=== PATIENT | male | born 1930 | race Caucasian/White ===

== ENCOUNTER 2016-09-09 18:26 | Emergency (ER) | payer MEDICARE, BC, OTHER ==
--- NOTE | 2016-09-09 19:40 | ER Document Report ---
ED General - General Chief Complaint: Skin Tear(s) Stated Complaint: SKIN CONCERN Cannot obtain history due to: Dementia Notes: Patient is an 86-year-old male who presents from [facility] after he apparently slipped out of his bed causing one of his many fibromas to rub across the bed sheet. This did cause a small abrasion so EMS was contacted for patient to be brought to the emergency department. Patient at time of arrival denies any concerns and states "I don't know why I'm here". TRAVEL OUTSIDE OF THE [place] IN LAST 30 DAYS: No - Related Data Allergies/Adverse Reactions: No Known Allergies Allergy (Verified 05/13/16 05:44) Past Medical History - General Information source: Patient, Emergency Med Personnel - Social History Smoking Status: Never Smoker Frequency of alcohol use: None Drug Abuse: None Lives with: Assisted Family History: None, Reviewed & Not Pertinent - Past Medical History Cardiac Medical History: Reports: Hx Atrial Fibrillation, Hx Hypercholesterolemia Denies: Hx Heart Attack, Hx Hypertension Pulmonary Medical History: Denies: Hx Asthma, Hx Bronchitis, Hx COPD, Hx Pneumonia Neurological Medical History: Denies: Hx Seizures Endocrine Medical History: Reports: Hx Diabetes Mellitus Type 2 GI Medical History: Reports: Hx Gastroesophageal Reflux Disease Musculoskeltal Medical History: Denies Hx Arthritis Psychiatric Medical History: Reports: Hx Dementia, Hx Depression Past Surgical History: Reports: Hx Appendectomy, Hx Tonsillectomy - Immunizations Hx Diphtheria, Pertussis, Tetanus Vaccination: No - given in ER today Review of Systems - Review of Systems Notes: Constitutional: Negative for fever. Cardiovascular: Negative for chest pain. Respiratory: Negative for shortness of breath. Gastrointestinal: Negative for vomiting Musculoskeletal: Negative for back pain. Skin: Negative for rash. Neurological: Negative for weakness or numbness. 10 point ROS negative except as marked above and in HPI. Physical Exam - Vital signs Vitals: Temp Pulse Resp BP Pulse Ox 97.9 F 71 16 115/62 89 L 09/09/16 22:31 09/09/16 22:31 09/09/16 22:31 09/09/16 22:31 09/09/16 22:31 Interpretation: Normal Notes: PHYSICAL EXAMINATION: GENERAL: Well-appearing, well-nourished and in no acute distress. HEAD: Atraumatic, normocephalic. EYES: sclera anicteric, conjunctiva are normal. ENT: Moist mucous membranes. NECK: Normal range of motion LUNGS: Normal work of breathing HEART: 2+ radial pulses bilaterally EXTREMITIES: no pitting or edema. No cyanosis. NEUROLOGICAL: No focal neurological deficits. Moves all extremities spontaneously and on command. PSYCH: Normal mood, normal affect. 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 No indication for repair. The wound has been cleaned and dressed. Patient will be sent back to the facility which sent him.At this time will discharge with return precautions and follow-up recommendations. Verbal discharge instructions given a the bedside and opportunity for questions given. Medication warnings reviewed. Patient is in agreement with this plan and has verbalized understanding of return precautions and the need for primary care follow-up in the next 24-72 hours. - Vital Signs Vital signs: Temp Pulse Resp BP Pulse Ox 97.9 F 71 16 115/62 89 L 09/09/16 22:31 09/09/16 22:31 09/09/16 22:31 09/09/16 22:31 09/09/16 22:31 Discharge - Discharge Clinical Impression: Fibroma, Superficial abrasion Condition: Good Disposition: HOME, SELF-CARE Additional Instructions: Please keep the area clean and dry. Apply sterile dressing. Monitor for any signs of infection including spreading redness, pus from the wound, constitutional symptoms including fever, vomiting, or decreased energy or appetite. Referrals: JÚNIOR CARRENO MD [Primary Care Provider] - Follow up as needed
[2016-09-09 22:33] VITALS: BP 115/62
== END 2016-09-09 23:25 | disposition home or self-care (01) ==
LOC: ER 18:26
DX: S20.411A Abrasion of right back wall of thorax, initial encounter (principal); W22.8XXA Striking against or struck by other objects, initial encounter; D23.5 Other benign neoplasm of skin of trunk; E11.9 Type 2 diabetes mellitus without complications
CPT/HCPCS: 99284

== ENCOUNTER 2016-09-16 11:53 | Emergency (ER) | payer MEDICARE, BC ==
[2016-09-16] MEDS ORDERED: ASPIRIN 81 MG TABLET, CHEWABLE PO ONE (11:56)
[2016-09-16 12:26] LABS: HEMATOCRIT 34.4 % (37.9-51.0); HEMOGLOBIN 10.9 g/dL (13.5-17.0); HGB HCT DIFFERENCE -1.7; MEAN CORPUSCULAR HEMOGLOBIN 22.9 pg (27.0-33.4); MEAN CORPUSCULAR HGB CONC 31.8 g/dL (32.0-36.0); MEAN CORPUSCULAR VOLUME 72 fl (80-97); RED BLOOD COUNT 4.78 10^6/uL (4.35-5.55); RED CELL DISTRIBUTION WIDTH 18.9 % (11.5-14.0); WHITE BLOOD COUNT 11.2 10^3/uL (4.0-10.5)
[2016-09-16 12:55] LABS: ALANINE AMINOTRANSFERASE 34 U/L (21-72); ALBUMIN 2.4 g/dL (3.5-5.0); ALKALINE PHOSPHATASE 75 U/L (38-126); ANION GAP 12 (5-19); ASPARTATE AMINO TRANSFERASE 32 U/L (17-59); BILIRUBIN,TOTAL 0.3 mg/dL (0.2-1.3); BLOOD UREA NITROGEN 21 mg/dL (7-20); CALCIUM 8.7 mg/dL (8.4-10.2); CARBON DIOXIDE 26 mmol/L (22-30); CHLORIDE 102 mmol/L (98-107); CREATININE RESULT 0.66 mg/dL (0.52-1.25); GLUCOSE 194 mg/dL (75-110); POTASSIUM 3.4 mmol/L (3.6-5.0); SODIUM 139.8 mmol/L (137-145); TOTAL PROTEIN 5.7 g/dL (6.3-8.2)
[2016-09-16 12:56] LABS: CREATINE KINASE < 20 U/L (55-170)
[2016-09-16 12:58] LABS: BAND NEUTROPHILS % (MANUAL) 1 % (3-5); BASOPHILS % (MANUAL) 1 % (0-2); EOSINOPHILS % (MANUAL) 1 % (0-6); LYMPHOCYTES % (MANUAL) 5 % (13-45); TOTAL CELLS COUNTED 100
[2016-09-16 12:59] LABS: ANISOCYTOSIS 2+; HYPOCHROMASIA SLIGHT; MICROCYTOSIS 1+; OVALOCYTES 1+; POIKILOCYTOSIS 1+; POLYCHROMASIA SLIGHT; TOXIC GRANULATION SLIGHT
[2016-09-16 13:07] LABS: CREATINE KINASE MB 0.54 ng/mL (<4.55); TROPONIN I < 0.012 ng/mL
--- NOTE | 2016-09-16 13:13 | ER Document Report ---
ED General - General Chief Complaint: Cough Stated Complaint: COUGH Mode of Arrival: Medic Information source: Patient Notes: This is an 86-year-old gentleman with a history of neurofibromatosis who lives at [facility] WHO IS BROUGHT IN BY EMS FOR RIGHT-SIDED PLEURITIC CHEST PAIN. The patient tells me that this pain has been going on for "a while" but that he really wants to know what's going on. He denies current chest pain. He states he does not have pain at rest. He does have pain on the right side with deep inspiration and with cough. He denies any palpitations or dizziness. He does not feel short of breath. He has had no diaphoresis. TRAVEL OUTSIDE OF THE [place] IN LAST 30 DAYS: No - Related Data Allergies/Adverse Reactions: No Known Allergies Allergy (Verified 05/13/16 05:44) Past Medical History - General Information source: Patient Cannot obtain history due to: Other - mild dementia - Social History Smoking Status: Unknown if Ever Smoked Family History: None, Reviewed & Not Pertinent - Past Medical History Cardiac Medical History: Reports: Hx Atrial Fibrillation, Hx Hypercholesterolemia Denies: Hx Heart Attack, Hx Hypertension Pulmonary Medical History: Denies: Hx Asthma, Hx Bronchitis, Hx COPD, Hx Pneumonia Neurological Medical History: Denies: Hx Seizures Endocrine Medical History: Reports: Hx Diabetes Mellitus Type 2 GI Medical History: Reports: Hx Gastroesophageal Reflux Disease Musculoskeltal Medical History: Denies Hx Arthritis Psychiatric Medical History: Reports: Hx Dementia, Hx Depression Past Surgical History: Reports: Hx Appendectomy, Hx Tonsillectomy - Immunizations Hx Diphtheria, Pertussis, Tetanus Vaccination: No - given in ER today Review of Systems - Review of Systems Notes: REVIEW OF SYSTEMS: CONSTITUTIONAL : Denies fever, chills, or sweats. Denies recent illness. EENT: Denies eye, ear, throat, or mouth pain or symptoms. CARDIOVASCULAR: As per history of present illness RESPIRATORY: Denies shortness of breath, difficulty breathing, or wheezing. Cough and pleuritic pain as per history of present illness GASTROINTESTINAL: Denies abdominal pain. Denies nausea, vomiting, or diarrhea. Denies constipation GENITOURINARY: Denies difficulty urinating, painful urination, burning, frequency, or blood in urine. MUSCULOSKELETAL: Denies neck or back pain or joint pain or swelling. SKIN: Denies rash. Multiple fibromas are chronic HEMATOLOGIC : Denies easy bruising or bleeding. LYMPHATIC: Denies swollen, enlarged glands. NEUROLOGICAL: Denies headache. PSYCHIATRIC: Denies anxiety or stress or depression. ALL OTHER SYSTEMS REVIEWED AND NEGATIVE. Physical Exam - Vital signs Vitals: Resp Pulse Ox 22 H 92 09/16/16 12:16 09/16/16 12:16 - Notes Notes: PHYSICAL EXAMINATION: GENERAL: Well-appearing, interactive and conversant elderly male with innumerable soft tissue fibromas over his body. HEAD: Atraumatic, normocephalic. EYES: Pupils equal round and reactive to light, extraocular movements intact, sclera anicteric, conjunctiva are normal. ENT: nares patent, oropharynx clear without exudates. Moist mucous membranes. NECK: Normal range of motion, supple without lymphadenopathy LUNGS: Breath sounds clear to auscultation bilaterally and equal. No wheezes rales or rhonchi. Occasional deep cough during exam chest wall: No TTP HEART: Regular rate and rhythm without murmurs ABDOMEN: Soft, nontender, normoactive bowel sounds. No guarding, no rebound. No masses appreciated. EXTREMITIES: Normal range of motion, no edema NEUROLOGICAL: No gross focal motor or sensory deficits. Pt alert to person and place and has baseline mild dementia PSYCH: Normal mood, normal affect. SKIN: inumerable fibromas Course - Re-evaluation Re-evalutation: 09/16/16 16:13 Patient is resting comfortably in the room. He is very pleasant and conversant has no shortness of breath. We reviewed the CT results he will be discharged home today. Secondary to his deep cough, leukocytosis, and recent history of right sided pneumonia in May 2016, I will treat him with a course of doxycycline. He will follow up with his primary care physician. He is comfortable with this plan and return precautions are discussed. 09/16/16 22:34 - Vital Signs Vital signs: Temp Pulse Resp BP Pulse Ox 98.9 F 19 121/70 92 09/16/16 13:00 09/16/16 16:33 09/16/16 16:33 09/16/16 16:33 - Laboratory Result Diagrams: 09/16/16 12:05 09/16/16 12:20 Laboratory results interpreted by me: 09/16/16 09/16/16 12:05 12:20 WBC 11.2 H Hgb 10.9 L Hct 34.4 L MCV 72 L MCH 22.9 L MCHC 31.8 L RDW 18.9 H Seg Neuts % (Manual) 88 H Band Neutrophils % 1 L Lymphocytes % (Manual) 5 L Monocytes % (Manual) 2 L Metamyelocytes % 2 H Abs Neuts (Manual) 10.2 H Potassium 3.4 L BUN 21 H Glucose 194 H Creatine Kinase < 20 L Total Protein 5.7 L Albumin 2.4 L - Diagnostic Test Radiology reviewed: Reports reviewed - CTA of the chest and abdomen demonstrates no pulmonary embolism and no acute abnormality. He does have patchy bilateral airspace disease which is improved from May. - EKG Interpretation by Me Additional EKG results interpreted by me: 09/16/16 16:15 EKG done at 1212 today demonstrates sinus rhythm with a rate of 80. He does have PVCs. I see some nonspecific T-wave changes but no ST elevation or depression or obvious signs of acute ischemia. Discharge - Discharge Clinical Impression: Pleuritic chest pain, Cough in adult patient Condition: Stable Disposition: HOME, SELF-CARE Additional Instructions: CHEST WALL PAIN: Your chest pain may be coming from the chest wall. This is often caused by straining the muscles or joints in the chest during physical activity, direct trauma, coughing, or vigorous vomiting. Persons with arthritis are especially prone to this type of pain, due to inflammation of the cartilage joints near the breast bone. Occasionally, no cause can be found. Rest from strenuous physical activity. This kind of chest pain is usually made worse by movement of the chest. Depending on the symptoms, we may prescribe medicine for pain, muscle relaxation, and antiinflammatory effects. If the pain is new, and seems to be due to muscle strain, cold packs can help. Otherwise, apply gentle warmth to the painful area for 15 minutes every hour or two. You should call contact the doctor immediately if things change. Further evaluation is needed if you develop a fever or cough, if the nature of the pain changes, or if you become short of breath. Pleurisy Your chest pain has been diagnosed as pleuritis (pleurisy). This is an inflammation of the surface of the lung tissue. It can be caused by a virus or , occasionally, old scar tissue. It is painful but, for the most part, not a serious problem. This pain is usually made worse by deep breathing, coughing, or sudden movements of the upper body or arms. The treatment is relief of symptoms. It includes rest, antiinflammatory medication, and pain medicine. Resolution of the pain is usually rapid once antiinflammatory medication is started. Warning signs of a more serious problem include: a fever, shortness of breath, pain that radiates to your jaw, shoulders or arms, or coughing up bloody sputum. If any of these symptoms occur, call the physician at once. FOLLOW-UP CARE: If you have been referred to a physician for follow-up care, call the physician s office for an appointment as you were instructed or within the next two days. If you experience worsening or a significant change in your symptoms, notify the physician immediately or return to the Emergency Department at any time for re-evaluation. Prescriptions: Doxycycline Hyclate 100 mg PO BID #14 capsule
[2016-09-16] MEDS ORDERED: NORMAL SALINE 1000 ML 1,000 ML IV ONE (13:14)
--- NOTE | 2016-09-16 13:21 | EKG REPORT ---
SEVERITY:- ABNORMAL ECG - SINUS RHYTHM MULTIPLE PREMATURE COMPLEXES, SUPRAVEN ABERRENCY BORDERLINE T ABNORMALITIES, INFERIOR LEADS : Confirmed by: Ronnie Hardwick MD 16-Sep-2016 13:20:53
[2016-09-16 16:42] VITALS: BP 121/70
== END 2016-09-16 16:54 | disposition home or self-care (01) ==
LOC: ER 11:53
DX: R07.89 Other chest pain (principal); R05 Cough
CPT/HCPCS: 93005; 99284; 96360; 36415; 82553; 82550; 85025; 80053; 84484; 71010; 71275; 93010; J7030

== ENCOUNTER 2016-09-24 14:19 | Inpatient (IN) | payer MEDICARE, BC ==
--- NOTE | 2016-09-24 14:46 | ER Document Report ---
[id number] Information source: Emergency Med Personnel, [facility] Records TRAVEL OUTSIDE OF THE [place] IN LAST 30 DAYS: No - HPI Patient complains to provider of: Possible Fall Occurred: Just prior to arrival Where: Alf - [facility] Associated symptoms: Other - see above <LAURA CARRENO - Last Filed: 10/06/16 14:59> - General Stated Complaint: FOLLOW UP AFTER FALL Notes: 86 year old male with history of neurofibromatosis, atrial fibrillation, seizures, and dementia presents to the ED via EMS from [facility] after being found prone on the ground with his sweatshirt over his head. According to EMS the patient was conscious but incoherent, but do not know his baseline level of consciousness. Patient states that he does not remember falling. Patient was incontinent on examination. Patient was last seen in the ED on 09/16/2016 secondary to a cough and was prescribed doxycycline for 1 week. Patient's primary care provider is Dr. Carreno. A comprehensive HPI was unobtainable secondary to the patient's status. (LAURA CARRENO) - Related data Allergies/Adverse Reactions: No Known Allergies Allergy (Verified 05/13/16 05:44) Home Medications: Current Home Medications Acetaminophen [Tylenol Extra Strength 500 mg Tablet] 1 tab PO Q6HP PRN 09/25/16 [History] Aspirin [Adult Low Dose Aspirin EC] 81 mg PO DAILY 09/25/16 [History] Cetirizine HCl [Zyrtec 10 mg Tablet] 1 tab PO QPM 09/25/16 [History] Cholecalciferol (Vitamin D3) [Vitamin D3 1000 Unit Tablet] 1,000 unit PO DAILY 09/25/16 [History] Diltiazem HCl [Cardizem Cd 120 mg Capsule] 1 cap.sr PO DAILY 09/25/16 [History] Fluticasone/Salmeterol [Advair 250-50 Diskus 28 dose] 1 inh IH BID 09/25/16 [ History] Guaifenesin [Robitussin Syrup 200 mg/10 ml Ud Cup] 200 mg PO Q4HP PRN 09/25/16 [ History] Ipratropium/Albuterol Sulfate [Duoneb 3 ml Ampul] 3 ml NEB RTQ4HP PRN 09/25/16 [ History] Loperamide HCl [Loperamide] 2 mg PO PRN PRN 09/25/16 [History] Magnesium Hydroxide [Milk of Magnesia 30 ml Udcup] 30 ml PO DAILYP PRN 09/25/16 [History] Simvastatin [Zocor 20 mg Tablet] 20 mg PO QHS 09/25/16 [History] Tamsulosin HCl [Flomax 0.4 mg Cap.sr] 0.4 mg PO QAM 09/25/16 [History] Tiotropium Newberg [Spiriva Respimat] 4 gm IH DAILY 09/25/16 [History] Past Medical History - General Information source: Emergency Med Personnel, [facility] Records - Social History Smoking Status: Unknown if Ever Smoked Family History: Reviewed & Not Pertinent - Past Medical History Cardiac Medical History: Reports: Hx Atrial Fibrillation, Hx Heart Attack, Hx Hypercholesterolemia Neurological Medical History: Denies: Hx Seizures Endocrine Medical History: Reports: Hx Diabetes Mellitus Type 2 GI Medical History: Reports: Hx Gastroesophageal Reflux Disease Musculoskeltal Medical History: Denies Hx Arthritis Psychiatric Medical History: Reports: Hx Dementia, Hx Depression Past Surgical History: Reports: Hx Appendectomy, Hx Tonsillectomy - Immunizations Hx Diphtheria, Pertussis, Tetanus Vaccination: No - given in ER today <LAURA CARRENO - Last Filed: 10/06/16 14:59> Review of Systems - Review of Systems -: Yes ROS unobtainable due to patient's medical condition <LAURA CARRENO - Last Filed: 10/06/16 14:59> Physical Exam - General General appearance: Alert, Other - Strong urine odor secondary to urinary incontinence. In distress: None - HEENT Head: Normocephalic, Atraumatic Eyes: Normal Extraocular movements intact: Yes Pupils: PERRL - Respiratory Respiratory status: No respiratory distress Breath sounds: Rhonchi, Other - congestive cough - Cardiovascular Rhythm: Regular Heart sounds: Normal auscultation - Abdominal Inspection: Normal - Back Back: Normal - Extremities General upper extremity: Normal inspection, Normal ROM. No: Edema General lower extremity: Normal inspection, Normal ROM. No: Edema - Neurological Neuro grossly intact: Yes - Skin Skin Temperature: Warm Skin Moisture: Dry Skin Color: Normal Skin irregularity: other - Generalized neurofibromas present. Bleeding neurofibroma on right flank. <LAURA CARRENO - Last Filed: 10/06/16 14:59> - Vital signs Vitals: Temp Resp Pulse Ox 100.2 F 31 H 88 L 09/24/16 15:00 09/24/16 15:00 09/24/16 15:00 (AMY ARIAS) Course - Laboratory Result Diagrams: 09/24/16 15:05 09/24/16 15:05 - Diagnostic Test Radiology reviewed: Image reviewed, Reports reviewed - Chest x-ray shows retrocardiac infiltrate - EKG Interpretation by Me EKG shows normal: Sinus rhythm, Intervals, QRS Complexes, ST-T Waves. abnormal : Eagle Rate: Tachycardia - 114 Rhythm: PVC's Eagle/QRS: Left axis deviation When compared to previous EKG there are: No significant change - Consults Dr. Carreno Time consulted: 16:40 Consulted provider: will come to ER <AMY ARIAS - Last Filed: 09/24/16 16:44> - Laboratory Result Diagrams: 10/06/16 04:15 10/06/16 04:15 <LAURA CARRENO - Last Filed: 10/06/16 14:59> - Vital Signs Vital signs: Temp Pulse Resp BP Pulse Ox 98.3 F 76 16 110/58 L 96 10/06/16 12:05 10/06/16 13:25 10/06/16 13:25 10/06/16 12:05 10/06/16 13:25 (AMY ARIAS) - Laboratory Laboratory results interpreted by wv: 09/24/16 09/24/16 09/24/16 15:02 15:05 15:05 WBC 30.8 H* Hgb 10.8 L Hct 35.1 L MCV 72 L MCH 22.2 L MCHC 30.7 L RDW 19.0 H Plt Count 460 H Seg Neuts % (Manual) 93 H Lymphocytes % (Manual) 1 L Monocytes % (Manual) 0 L Abs Neuts (Manual) 29.9 H Abs Monocytes (Manual) 0.0 L Total Protein 5.7 L Albumin 2.8 L Urine Blood LARGE H Urine Nitrite POSITIVE H Ur Leukocyte Esterase LARGE H (AMY ARIAS) Discharge - Discharge Admitting Provider: [facility] Unit Admitted: IMCU <AMY ARIAS - Last Filed: 09/24/16 16:44> <LAURA CARRENO - Last Filed: 10/06/16 14:59> - Discharge Clinical Impression: Hypoxia Urinary tract infection Qualifiers: Urinary tract infection type: site unspecified Hematuria presence: with hematuria Qualified Code(s): N39.0 - Urinary tract infection, site not specified Pneumonia Qualifiers: Pneumonia type: due to unspecified organism Laterality: left Lung location: unspecified part of lung Qualified Code(s): J18.9 - Pneumonia, unspecified organism Leukocytosis Qualifiers: Leukocytosis type: bandemia Qualified Code(s): D72.825 - Bandemia Scribe Attestation: 09/24/16 16:43 I personally performed the services described in the documentation, reviewed and edited the documentation which was dictated to the scribe in my presence, and it accurately records my words and actions. (AMY ARIAS) Scribe Documentation - Scribe Written by Scribe:: You Kinney, 09/24/2016 1450 acting as scribe for :: Ton <LAURA CARRENO - Last Filed: 10/06/16 14:59>
[2016-09-24 15:21] LABS: APPEARANCE,URINE CLOUDY; BILIRUBIN,URINE NEGATIVE (NEGATIVE); GLUCOSE, URINE NEGATIVE (NEGATIVE); KETONES,URINE NEGATIVE (NEGATIVE); LEUKOCYTE ESTERASE,URINE LARGE (NEGATIVE); NITRITE,URINE POSITIVE (NEGATIVE); PROTEIN,URINE NEGATIVE (NEGATIVE); UROBILINOGEN,URINE NEGATIVE mg/dL (<2.0)
[2016-09-24 15:26] LABS: HEMATOCRIT 35.1 % (37.9-51.0); HEMOGLOBIN 10.8 g/dL (13.5-17.0); HGB HCT DIFFERENCE -2.7; MEAN CORPUSCULAR HEMOGLOBIN 22.2 pg (27.0-33.4); MEAN CORPUSCULAR HGB CONC 30.7 g/dL (32.0-36.0); MEAN CORPUSCULAR VOLUME 72 fl (80-97); RED BLOOD COUNT 4.86 10^6/uL (4.35-5.55)
[2016-09-24 15:27] LABS: VENOUS BLOOD BASE EXCESS 0.7 mmol/L; VENOUS BLOOD HCO3 25.9 mmol/L (20-32); VENOUS BLOOD PCO2 43.3 mmHg (35-63); VENOUS BLOOD PH 7.39 (7.30-7.42)
[2016-09-24 15:37] LABS: ALANINE AMINOTRANSFERASE 37 U/L (21-72); ALBUMIN 2.8 g/dL (3.5-5.0); ALKALINE PHOSPHATASE 85 U/L (38-126); ANION GAP 9 (5-19); ASPARTATE AMINO TRANSFERASE 29 U/L (17-59); BILIRUBIN,TOTAL 0.6 mg/dL (0.2-1.3); BLOOD UREA NITROGEN 19 mg/dL (7-20); CALCIUM 8.9 mg/dL (8.4-10.2); CARBON DIOXIDE 28 mmol/L (22-30); CHLORIDE 104 mmol/L (98-107); CREATININE RESULT 0.68 mg/dL (0.52-1.25); GLUCOSE 107 mg/dL (75-110); POTASSIUM 3.9 mmol/L (3.6-5.0); SODIUM 140.5 mmol/L (137-145); TOTAL PROTEIN 5.7 g/dL (6.3-8.2)
[2016-09-24 15:46] LABS: WHITE BLOOD COUNT 30.8 10^3/uL (4.0-10.5)
[2016-09-24 15:54] LABS: BAND NEUTROPHILS % (MANUAL) 4 % (3-5); BASOPHILS % (MANUAL) 0 % (0-2); EOSINOPHILS % (MANUAL) 1 % (0-6); LYMPHOCYTES % (MANUAL) 1 % (13-45); TOTAL CELLS COUNTED 100
[2016-09-24 15:55] LABS: TOXIC GRANULATION 1+
[2016-09-24 15:56] LABS: ANISOCYTOSIS 2+; MICROCYTOSIS 1+
[2016-09-24 15:58] LABS: OVALOCYTES SLIGHT; POLYCHROMASIA SLIGHT
[2016-09-24 15:59] LABS: HYPOCHROMASIA 1+
[2016-09-24] MEDS ORDERED: LEVOFLOXACIN 750 MG/D5W RTU 150 ML IV ONE (16:10)
[2016-09-24] MEDS ORDERED: CEFTRIAXONE 1 GM/D5W RTU 50 ML IV ONE (16:11)
[2016-09-24] MEDS ORDERED: CEFEPIME 1 GM/D5W RTU 50 ML IV ONE (16:41)
[2016-09-24] MEDS ORDERED: NORMAL SALINE 1000 ML 1,000 ML IV ONE ×2 (17:02→19:00)
[2016-09-24] MEDS ORDERED: NORMAL SALINE 1000 ML 1,000 ML IV PRN (17:15)
[2016-09-24] MEDS ORDERED: ACETAMINOPHEN 325 MG TABLET PO PRN (17:15)
[2016-09-24] MEDS ORDERED: ONDANSETRON HCL INJ/PF 4 MG/2 ML SDV IV PRN (17:15)
[2016-09-24] MEDS ORDERED: ENOXAPARIN SODIUM INJ 40 MG/0.4 ML DISP.SYRIN SUBCUT ONE (18:00)
--- NOTE | 2016-09-24 18:13 | PDOC H&P ---
History of Present Illness Admission Date/PCP: 09/24/16 17:20 JÚNIOR CARRENO MD History of Present Illness: BENNY POWELL is a 86 year old male This is a 86-year-old male with a significant history of neurofibromatosis chronic COPD and chronic smoker chronic A. fib and congestive heart failure and coronary disease came to the [facility] with the patient's found in the prone position and altered mental status in the ER patient's white count was 30, 000 and patient's have a urinary tract infection and pneumonia respiratory distress patient's in the IMCU for further evaluation and treatment. See the patient's patient's denied any chest pain denied any shortness of the breath since still complaining some cough and congestions since last several days and no fever. Expressed to be a DO NOT RESUSCITATE DO NOT INTUBATE Past Medical History Cardiac Medical History: Reports: Atrial Fibrillation, Myocardial Infarction, Hyperlipidema Denies: Hypertension Pulmonary Medical History: Denies: Asthma, Bronchitis, Chronic Obstructive Pulmonary Disease (COPD), Pneumonia Neurological Medical History: Denies: Seizures Endocrine Medical History: Reports: Diabetes Mellitus Type 2 GI Medical History: Reports: Gastroesophageal Reflux Disease Musculoskeltal Medical History: Denies: Arthritis Psychiatric Medical History: Reports: Dementia, Depression Hematology: Denies: Anemia Past Surgical History Past Surgical History: Reports: Appendectomy, Tonsillectomy Social History Smoking Status: Current Every Day Smoker Frequency of Alcohol Use: None Hx Recreational Drug Use: No Hx Prescription Drug Abuse: No Family History Family History: Reviewed & Not Pertinent Parental Family History Reviewed: Yes Children Family History Reviewed: Yes Sibling(s) Family History Reviewed.: Yes Medication/Allergy Allergies/Adverse Reactions: No Known Allergies Allergy (Verified 05/13/16 05:44) Review of Systems Constitutional: PRESENT: fatigue, weakness Cardiovascular: PRESENT: dyspnea on exertion Respiratory: PRESENT: cough, dyspnea, sputum Gastrointestinal: ABSENT: as per HPI, bloating, coffee ground emesis, constipation, diarrhea, dysphagia, heartburn, hematemesis, hematochezia, melena , nausea, vomiting, other Genitourinary: PRESENT: dysuria Musculoskeletal: PRESENT: back pain Neurological: PRESENT: confusion Physical Exam Vital Signs: Temp Pulse Resp BP Pulse Ox 98.3 F 24 H 98/57 L 96 09/24/16 18:01 09/24/16 17:31 09/24/16 17:31 02/15/17 17:31 General appearance: PRESENT: mild distress Eye exam: PRESENT: conjunctiva pale, PERRLA Mouth exam: PRESENT: neck supple Neck exam: ABSENT: full ROM Respiratory exam: PRESENT: decreased breath sounds, wheezes Cardiovascular exam: PRESENT: +S1, +S2 GI/Abdominal exam: PRESENT: normal bowel sounds, soft Extremities exam: ABSENT: pedal edema Neurological exam: PRESENT: alert, altered, awake Psychiatric exam: PRESENT: anxious Skin exam: PRESENT: dry Results Impressions: Chest X-Ray 09/24/16 14:21 IMPRESSION: QUESTIONABLE RETROCARDIAC INFILTRATE, DIFFICULT TO VISUALIZE. Assessment & Plan - Diagnosis (1) Septicemia Is this a current diagnosis for this admission?: YesPlan: Most likely from the pneumonia and urinary tract infections start the patient on IV broad-spectrum antibiotic get the all the blood culture urine cultures sputum cultures and IV fluid and continues to monitor the patient's (2) Pneumonia Qualifiers: Pneumonia type: due to unspecified organism Laterality: left Lung location: unspecified part of lung Qualified Code(s): J18.9 - Pneumonia, unspecified organism Is this a current diagnosis for this admission?: YesPlan: Start specimen IV antibiotic (3) Urinary tract infection Qualifiers: Urinary tract infection type: site unspecified Hematuria presence: with hematuria Qualified Code(s): N39.0 - Urinary tract infection, site not specified Is this a current diagnosis for this admission?: YesPlan: The urine cultures (4) Paroxysmal atrial fibrillation Is this a current diagnosis for this admission?: YesPlan: Patient is not a candidate for an anticoagulations due to the frequent fall (5) Respiratory failure Qualifiers: Chronicity: acute on chronic Respiratory failure complication: hypoxia and hypercapnia Qualified Code(s): J96.21 - Acute and chronic respiratory failure with hypoxia Is this a current diagnosis for this admission?: YesPlan: Continuous oxygen therapy nebulizer treatments and IV antibiotic (6) Coronary artery disease Is this a current diagnosis for this admission?: YesPlan: Stable (7) Neurofibromatosis Is this a current diagnosis for this admission?: YesPlan: Chronic conditions (8) Altered mental status Qualifiers: Altered mental status type: unspecified Qualified Code(s): R41.82 - Altered mental status, unspecified Is this a current diagnosis for this admission?: YesPlan: Most likely from the sepsis will get the CT of the head with the history of fall - Time Time Spent: 50 to 70 Minutes Medications reviewed and adjusted accordingly: Yes Anticipated discharge: SNF Within: Other - Inpatient Certification Medical Necessity: Significant Comorbidiites Make Outpatient Treatment Too Risky , Need Close Monitoring Due to Risk of Patient Decompensation, Need for IV Antibiotics Post Hospital Care: D/C Steak Tenderizer Machine Documentation - Plan Summary Plan Summary: Admitted the patient and IMCU start the patient on IV antibiotic and the respiratory treatment CT of the head and the chest and continues to monitor the patient's patient overall poor prognosis
[2016-09-24] MEDS: DOCUSATE SODIUM 100 MG CAPSULE PO SCH (18:15)
[2016-09-24 19:49] LABS: CREATINE KINASE MB 1.29 ng/mL (<4.55)
[2016-09-24 19:56] LABS: TROPONIN I 0.078 ng/mL
[2016-09-24] MEDS: IPRATROPIUM/ALBUTEROL 0.5-2.5 MG/3 ML AMPUL NEB SCH (20:01)
--- NOTE | 2016-09-24 21:37 | EKG REPORT ---
SEVERITY:- ABNORMAL ECG - SINUS TACHYCARDIA LEFT AXIS DEVIATION : Confirmed by: Camron Hoyos 24-Sep-2016 21:36:27
[2016-09-25 01:32] LABS: CREATINE KINASE MB 1.53 ng/mL (<4.55); TROPONIN I 0.04 ng/mL
[2016-09-25] MEDS: CEFEPIME 1 GM/D5W RTU 1 GM/50 ML RTUPB IV SCH ×2 (05:01→17:06)
[2016-09-25 07:11] LABS: HEMATOCRIT 31.6 % (37.9-51.0); HEMOGLOBIN 9.8 g/dL (13.5-17.0); HGB HCT DIFFERENCE -2.2; MEAN CORPUSCULAR HEMOGLOBIN 22.4 pg (27.0-33.4); MEAN CORPUSCULAR HGB CONC 31.1 g/dL (32.0-36.0); MEAN CORPUSCULAR VOLUME 72 fl (80-97); RED BLOOD COUNT 4.39 10^6/uL (4.35-5.55); RED CELL DISTRIBUTION WIDTH 18.5 % (11.5-14.0)
[2016-09-25 07:18] LABS: ANION GAP 8 (5-19); BLOOD UREA NITROGEN 19 mg/dL (7-20); CALCIUM 8.2 mg/dL (8.4-10.2); CARBON DIOXIDE 25 mmol/L (22-30); CHLORIDE 109 mmol/L (98-107); CREATINE KINASE 60 U/L (55-170); GLUCOSE 82 mg/dL (75-110); POTASSIUM 3.9 mmol/L (3.6-5.0); SODIUM 141.9 mmol/L (137-145)
[2016-09-25 07:27] LABS: BAND NEUTROPHILS % (MANUAL) 1 % (3-5); BASOPHILS % (MANUAL) 0 % (0-2); CREATINE KINASE MB 1.71 ng/mL (<4.55); EOSINOPHILS % (MANUAL) 0 % (0-6); LYMPHOCYTES % (MANUAL) 4 % (13-45); TOTAL CELLS COUNTED 100
[2016-09-25 07:28] LABS: ANISOCYTOSIS 1+
[2016-09-25 07:29] LABS: HYPOCHROMASIA SLIGHT; MICROCYTOSIS 1+; OVALOCYTES SLIGHT; POIKILOCYTOSIS SLIGHT
[2016-09-25 07:31] LABS: TROPONIN I 0.019 ng/mL
[2016-09-25 07:42] LABS: WHITE BLOOD COUNT 34.9 10^3/uL (4.0-10.5)
[2016-09-25] MEDS: ENOXAPARIN SODIUM INJ 40 MG/0.4 ML DISP.SYRIN SUBCUT SCH (07:58)
[2016-09-25] MEDS ORDERED: VANCOMYCIN HCL 0 MG in DEXTROSE 5%-WATER 250 ML IV NR (08:00)
[2016-09-25 08:41] LABS: ARTERIAL BLOOD BASE EXCESS 1.7 mmol/L; ARTERIAL BLOOD O2 SATURATION 94.7 % (94-98)
[2016-09-25] MEDS: IPRATROPIUM/ALBUTEROL 0.5-2.5 MG/3 ML AMPUL NEB SCH ×4 (08:42→20:11)
[2016-09-25] MEDS: VANCOMYCIN HCL 750 MG in DEXTROSE 5%-WATER 250 ML IV SCH ×2 (10:10→21:14)
[2016-09-25] MEDS: DOCUSATE SODIUM 100 MG CAPSULE PO SCH (10:12)
[2016-09-25] MEDS ORDERED: ALPRAZOLAM 0.25 MG TABLET PO PRN ×2 (11:12→13:41)
--- NOTE | 2016-09-25 12:26 | PDOC CONSULTATION ---
Consultation Consult Date: 09/25/16 Attending physician:: JÚNIOR CARRENO Consult reason:: resp fail History of Present Illness Admission Date/PCP: 09/24/16 17:15 JÚNIOR CARRENO MD History of Present Illness: BENNY POWELL is a 86 year old male This is a 86-year-old male with a significant history of neurofibromatosis chronic COPD and chronic smoker chronic A. fib and congestive heart failure and coronary disease. the patient's found in the prone position and altered mental status in the ER patient's white count was 30,000 and patient's have a urinary tract infection and pneumonia respiratory distress patient's in the IMCU for further evaluation and treatment. See the patient's complaining some cough and congestions since last several days and no fever. Expressed to be a DO NOT RESUSCITATE DO NOT INTUBATE Past Medical History Cardiac Medical History: Reports: Atrial Fibrillation, Myocardial Infarction, Hyperlipidema Denies: Hypertension Pulmonary Medical History: Denies: Asthma, Bronchitis, Chronic Obstructive Pulmonary Disease (COPD), Pneumonia Neurological Medical History: Denies: Seizures Endocrine Medical History: Reports: Diabetes Mellitus Type 2 GI Medical History: Reports: Gastroesophageal Reflux Disease Musculoskeltal Medical History: Denies: Arthritis Psychiatric Medical History: Reports: Dementia, Depression Hematology: Denies: Anemia Past Surgical History Past Surgical History: Reports: Appendectomy, Tonsillectomy Social History Information Source: [facility] Records Smoking Status: Current Every Day Smoker Passive smoke exposure as: Both Frequency of Alcohol Use: None Hx Recreational Drug Use: No Hx Prescription Drug Abuse: No - Advance Directive Resuscitation Status: Full Code Family History Family History: Reviewed & Not Pertinent Parental Family History Reviewed: No Children Family History Reviewed: No Sibling(s) Family History Reviewed.: No Medication/Allergy Allergies/Adverse Reactions: No Known Allergies Allergy (Verified 05/13/16 05:44) Physical Exam Vital Signs: Temp Pulse Resp BP Pulse Ox 97.7 F 120 H 29 H 108/51 L 93 09/25/16 08:00 09/25/16 10:00 09/25/16 10:00 09/25/16 10:00 09/25/16 10:00 Intake & Output 09/24/16 09/25/16 09/26/16 06:59 06:59 06:59 Intake Total 131 Output Total 270 75 Balance -139 -75 Weight 59.4 kg General appearance: PRESENT: disheveled, thin Head exam: PRESENT: normocephalic Eye exam: PRESENT: conjunctiva pale, EOMI Mouth exam: PRESENT: dry mucosa, neck supple, tongue midline Neck exam: ABSENT: carotid bruit, JVD, lymphadenopathy, thyromegaly Respiratory exam: PRESENT: decreased breath sounds, prolonged expiratory phas, rhonchi, symmetrical, unlabored Cardiovascular exam: PRESENT: irregular rhythm Pulses: PRESENT: normal radial pulses GI/Abdominal exam: PRESENT: normal bowel sounds, soft. ABSENT: distended, guarding, mass, organolmegaly, rebound, tenderness Rectal exam: PRESENT: deferred Musculoskeletal exam: PRESENT: normal inspection Neurological exam: PRESENT: awake Psychiatric exam: PRESENT: normal mood Skin exam: PRESENT: dry, warm, other - diffuse subcutaneous nodules c/w neurofirbromatosis Results Laboratory Results: 09/25/16 06:59 09/25/16 06:59 09/25/16 09/25/16 09/25/16 06:59 06:59 08:32 WBC 34.9 H* RBC 4.39 Hgb 9.8 L Hct 31.6 L MCV 72 L MCH 22.4 L MCHC 31.1 L RDW 18.5 H Plt Count 403 Seg Neutrophils % Not Reportable Lymphocytes % Not Reportable Monocytes % Not Reportable Eosinophils % Not Reportable Basophils % Not Reportable Absolute Neutrophils Not Reportable Absolute Lymphocytes Not Reportable Absolute Monocytes Not Reportable Absolute Eosinophils Not Reportable Absolute Basophils Not Reportable Carbonic Acid 1.00 L HCO3/H2CO3 Ratio 24:1 ABG pH 7.49 H ABG pCO2 33.2 L ABG pO2 66.3 L ABG HCO3 24.8 ABG O2 Saturation 94.7 ABG Base Excess 1.7 FiO2 6L Sodium 141.9 Potassium 3.9 Chloride 109 H Carbon Dioxide 25 Anion Gap 8 BUN 19 Creatinine 0.60 Est GFR ( Amer) > 60 Est GFR (Non-Af Amer) > 60 Glucose 82 Calcium 8.2 L 09/24/16 09/24/16 09/25/16 19:10 19:10 00:35 Creatine Kinase 57 63 CK-MB (CK-2) 1.29 Troponin I 0.078 NT-Pro-B Natriuret Pep 576 H 09/25/16 09/25/16 09/25/16 00:35 06:59 06:59 Creatine Kinase 60 CK-MB (CK-2) 1.53 1.71 Troponin I 0.040 0.019 NT-Pro-B Natriuret Pep Impressions: Chest CT 09/24/16 00:00 IMPRESSION: Significantly increased consolidation involving both lower lobes with new areas of patchy airspace disease present in the right middle and left upper lobes. Small bilateral pleural effusions are present. Head CT 09/24/16 00:00 IMPRESSION: Acute maxillary, ethmoid, and sphenoid sinusitis. CHRONIC CHANGES OF ATROPHY AND MICROVASCULAR ISCHEMIA. No acute intracranial findings. Chest X-Ray 09/24/16 14:21 IMPRESSION: QUESTIONABLE RETROCARDIAC INFILTRATE, DIFFICULT TO VISUALIZE. Assessment & Plan - Diagnosis (1) Leukocytosis Qualifiers: Leukocytosis type: bandemia Qualified Code(s): D72.825 - Bandemia Is this a current diagnosis for this admission?: YesPlan: WBC 32k w/bands (2) Neurofibromatosis Is this a current diagnosis for this admission?: YesPlan: unchanged (3) Septicemia Is this a current diagnosis for this admission?: Yes (4) Urinary tract infection Qualifiers: Urinary tract infection type: site unspecified Hematuria presence: with hematuria Qualified Code(s): N39.0 - Urinary tract infection, site not specified Is this a current diagnosis for this admission?: YesPlan: gnr in urine (5) Pneumonia Qualifiers: Pneumonia type: due to unspecified organism Laterality: left Lung location: unspecified part of lung Qualified Code(s): J18.9 - Pneumonia, unspecified organism Is this a current diagnosis for this admission?: YesPlan: cxr left retrocardiac density chest ct bibasilar air space dx with patchy involvement RUL:RML (6) Hypoxia Is this a current diagnosis for this admission?: YesPlan: good SAO2 94%;rr=22 on bipap (7) COPD with acute exacerbation Is this a current diagnosis for this admission?: YesPlan: consider holding advair and spiriva:continue duoneb bronchodialator tx - Time Critical Time spent with patient: 35 or more minutes - 55 min
[2016-09-25] MEDS ORDERED: CETIRIZINE 10 MG TABLET PO ONE (12:45)
[2016-09-25] MEDS ORDERED: FAMOTIDINE 20 MG TABLET PO ONE (12:45)
[2016-09-25] MEDS ORDERED: ASPIRIN 81 MG TABLET, CHEWABLE PO ONE (12:45)
[2016-09-25] MEDS ORDERED: TAMSULOSIN HCL 0.4 MG CAP.SR.24H PO ONE (12:45)
[2016-09-25] MEDS ORDERED: DRONEDARONE HYDROCHLORIDE 400 MG TABLET PO ONE (12:45)
[2016-09-25] MEDS ORDERED: DILTIAZEM HCL 120 MG CAP.SR.24H PO ONE (12:45)
[2016-09-25] MEDS ORDERED: DIGOXIN INJ 0.5 MG/2 ML AMPULE IV ONE (13:50)
[2016-09-25] MEDS ORDERED: TIOTROPIUM BROMIDE DPI 5 CAP/KIT (18 MCG/CAP) IH ONE (14:00)
[2016-09-25 14:22] LABS: PATH REVIEW PATHOLOGIST REVIEWED
--- NOTE | 2016-09-25 16:51 | PDOC PROGRESS REPORT ---
Subjective Progress Note for:: 09/25/16 Subjective:: Patient is getting better thisCurrently still on a BiPAPPatient's white count is still elevated.No fever no chest pain no shortness of the breath. Physical Exam Vital Signs: Temp Pulse Resp BP Pulse Ox 98.4 F 82 19 85/55 L 96 09/25/16 16:00 09/25/16 16:00 09/25/16 16:00 09/25/16 16:00 09/25/16 16:00 Intake & Output 09/24/16 09/25/16 09/26/16 06:59 06:59 06:59 Intake Total 131 Output Total 270 300 Balance -139 -300 Weight 59.4 kg General appearance: PRESENT: no acute distress Head exam: PRESENT: normocephalic Eye exam: PRESENT: PERRLA Mouth exam: PRESENT: neck supple Respiratory exam: PRESENT: decreased breath sounds, wheezes Cardiovascular exam: PRESENT: +S1, +S2 GI/Abdominal exam: PRESENT: normal bowel sounds, soft. ABSENT: tenderness Extremities exam: ABSENT: pedal edema Neurological exam: PRESENT: alert, awake, oriented to person Results Laboratory Results: 09/25/16 06:59 09/25/16 06:59 09/25/16 09/25/16 09/25/16 06:59 06:59 08:32 WBC 34.9 H* RBC 4.39 Hgb 9.8 L Hct 31.6 L MCV 72 L MCH 22.4 L MCHC 31.1 L RDW 18.5 H Plt Count 403 Seg Neutrophils % Not Reportable Lymphocytes % Not Reportable Monocytes % Not Reportable Eosinophils % Not Reportable Basophils % Not Reportable Absolute Neutrophils Not Reportable Absolute Lymphocytes Not Reportable Absolute Monocytes Not Reportable Absolute Eosinophils Not Reportable Absolute Basophils Not Reportable Carbonic Acid 1.00 L HCO3/H2CO3 Ratio 24:1 ABG pH 7.49 H ABG pCO2 33.2 L ABG pO2 66.3 L ABG HCO3 24.8 ABG O2 Saturation 94.7 ABG Base Excess 1.7 FiO2 6L Sodium 141.9 Potassium 3.9 Chloride 109 H Carbon Dioxide 25 Anion Gap 8 BUN 19 Creatinine 0.60 Est GFR ( Amer) > 60 Est GFR (Non-Af Amer) > 60 Glucose 82 Calcium 8.2 L 09/24/16 09/24/16 09/25/16 19:10 19:10 00:35 Creatine Kinase 57 63 CK-MB (CK-2) 1.29 Troponin I 0.078 NT-Pro-B Natriuret Pep 576 H 09/25/16 09/25/16 09/25/16 00:35 06:59 06:59 Creatine Kinase 60 CK-MB (CK-2) 1.53 1.71 Troponin I 0.040 0.019 NT-Pro-B Natriuret Pep Impressions: Chest CT 09/24/16 00:00 IMPRESSION: Significantly increased consolidation involving both lower lobes with new areas of patchy airspace disease present in the right middle and left upper lobes. Small bilateral pleural effusions are present. Head CT 09/24/16 00:00 IMPRESSION: Acute maxillary, ethmoid, and sphenoid sinusitis. CHRONIC CHANGES OF ATROPHY AND MICROVASCULAR ISCHEMIA. No acute intracranial findings. Chest X-Ray 09/24/16 14:21 IMPRESSION: QUESTIONABLE RETROCARDIAC INFILTRATE, DIFFICULT TO VISUALIZE. Assessment & Plan - Diagnosis (1) Septicemia Is this a current diagnosis for this admission?: YesPlan: From the pneumonia and a urinary tract infectionAt the vancomycinTo cover the MRSA (2) Pneumonia Qualifiers: Pneumonia type: due to unspecified organism Laterality: left Lung location: unspecified part of lung Qualified Code(s): J18.9 - Pneumonia, unspecified organism Is this a current diagnosis for this admission?: YesPlan: Continues to IV antibiotic (3) Urinary tract infection Qualifiers: Urinary tract infection type: site unspecified Hematuria presence: with hematuria Qualified Code(s): N39.0 - Urinary tract infection, site not specified Is this a current diagnosis for this admission?: YesPlan: Wait for the urine culture (4) Paroxysmal atrial fibrillation Is this a current diagnosis for this admission?: YesPlan: Current continues the current medicAnd may be at the digoxinWhile the patient's blood pressure is running low (5) Respiratory failure Qualifiers: Chronicity: acute on chronic Respiratory failure complication: hypoxia and hypercapnia Qualified Code(s): J96.21 - Acute and chronic respiratory failure with hypoxia Is this a current diagnosis for this admission?: YesPlan: Currently on a BiPAP and follow with the pulmonary (6) Coronary artery disease Is this a current diagnosis for this admission?: YesPlan: Patient's cardiac enzyme is all stableNo sign of any acute [place] (7) Neurofibromatosis Is this a current diagnosis for this admission?: Yes (8) Altered mental status Qualifiers: Altered mental status type: unspecified Qualified Code(s): R41.82 - Altered mental status, unspecified Is this a current diagnosis for this admission?: YesPlan: Due to the sepsis patient's CT head is negative - Time Time Spent with patient: 15-24 minutes Critical Time spent with patient: 15-24 minutes Medications reviewed and adjusted accordingly: Yes Anticipated discharge: SNF Within: Other - Inpatient Certification Medical Necessity: Need Close Monitoring Due to Risk of Patient Decompensation, Need for IV Antibiotics 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
[2016-09-25] MEDS: LEVOFLOXACIN 500 MG/D5W RTU 500 MG/100 ML RTUPB IV SCH (17:42)
[2016-09-25] MEDS: DRONEDARONE HYDROCHLORIDE 400 MG TABLET PO SCH (21:12)
[2016-09-25] MEDS: FAMOTIDINE 20 MG TABLET PO SCH (21:13)
[2016-09-25] MEDS: FLUTICASONE/SALMETEROL DISKUS 250-50 MCG/DOSE IH SCH (21:13)
[2016-09-25] MEDS: SIMVASTATIN 10 MG TABLET PO SCH (21:13)
[2016-09-26] MEDS: IPRATROPIUM/ALBUTEROL 0.5-2.5 MG/3 ML AMPUL NEB SCH ×4 (02:10→20:21)
[2016-09-26] MEDS: CEFEPIME 1 GM/D5W RTU 1 GM/50 ML RTUPB IV SCH ×2 (05:50→17:01)
[2016-09-26 06:51] LABS: ARTERIAL BLOOD BASE EXCESS 1.9 mmol/L; ARTERIAL BLOOD O2 SATURATION 92.9 % (94-98)
[2016-09-26] MEDS: ENOXAPARIN SODIUM INJ 40 MG/0.4 ML DISP.SYRIN SUBCUT SCH (07:32)
[2016-09-26 09:04] LABS: HEMATOCRIT 28.9 % (37.9-51.0); HEMOGLOBIN 8.9 g/dL (13.5-17.0); HGB HCT DIFFERENCE -2.2; MEAN CORPUSCULAR HEMOGLOBIN 22.4 pg (27.0-33.4); MEAN CORPUSCULAR HGB CONC 30.9 g/dL (32.0-36.0); MEAN CORPUSCULAR VOLUME 72 fl (80-97); RED BLOOD COUNT 3.99 10^6/uL (4.35-5.55); RED CELL DISTRIBUTION WIDTH 18.9 % (11.5-14.0); WHITE BLOOD COUNT 18.7 10^3/uL (4.0-10.5)
[2016-09-26 09:29] LABS: ANION GAP 7 (5-19); BLOOD UREA NITROGEN 20 mg/dL (7-20); CALCIUM 8.2 mg/dL (8.4-10.2); CARBON DIOXIDE 26 mmol/L (22-30); CHLORIDE 106 mmol/L (98-107); GLUCOSE 89 mg/dL (75-110); POTASSIUM 3.3 mmol/L (3.6-5.0); SODIUM 139.4 mmol/L (137-145)
[2016-09-26] MEDS: DILTIAZEM HCL 120 MG CAP.SR.24H PO SCH (09:46)
[2016-09-26] MEDS: TAMSULOSIN HCL 0.4 MG CAP.SR.24H PO SCH (09:47)
[2016-09-26] MEDS: CETIRIZINE 10 MG TABLET PO SCH (09:47)
[2016-09-26] MEDS: DRONEDARONE HYDROCHLORIDE 400 MG TABLET PO SCH ×2 (09:47→22:49)
[2016-09-26] MEDS: ASPIRIN 81 MG TABLET, CHEWABLE PO SCH (09:47)
[2016-09-26] MEDS: FLUTICASONE/SALMETEROL DISKUS 250-50 MCG/DOSE IH SCH ×2 (09:48→22:49)
[2016-09-26] MEDS: TIOTROPIUM BROMIDE DPI 5 CAP/KIT (18 MCG/CAP) IH SCH (09:48)
[2016-09-26] MEDS: FAMOTIDINE 20 MG TABLET PO SCH ×2 (09:48→22:49)
[2016-09-26] MEDS: VANCOMYCIN HCL 750 MG in DEXTROSE 5%-WATER 250 ML IV SCH ×2 (10:37→22:49)
--- NOTE | 2016-09-26 14:00 | PDOC PROGRESS REPORT ---
Subjective Progress Note for:: 09/26/16 Subjective:: pt is doing fair still confuse off bipap in imcu nocp no sob Physical Exam Vital Signs: Temp Pulse Resp BP Pulse Ox 97.8 F 80 20 98/53 L 96 09/26/16 12:04 09/26/16 12:04 09/26/16 12:04 09/26/16 12:04 09/26/16 12:04 Intake & Output 09/25/16 09/26/16 09/27/16 06:59 06:59 06:59 Intake Total 131 953 Output Total 270 1010 100 Balance -139 -57 -100 Weight 59.4 kg General appearance: PRESENT: no acute distress Head exam: PRESENT: normocephalic Eye exam: PRESENT: PERRLA Mouth exam: PRESENT: neck supple Respiratory exam: PRESENT: clear to auscultation sherley Cardiovascular exam: PRESENT: +S1, +S2 GI/Abdominal exam: PRESENT: normal bowel sounds, soft. ABSENT: tenderness Extremities exam: ABSENT: pedal edema Neurological exam: PRESENT: alert, altered, awake Psychiatric exam: PRESENT: anxious Skin exam: PRESENT: dry Results Laboratory Results: 09/26/16 08:44 09/26/16 08:44 09/26/16 09/26/16 09/26/16 06:30 08:44 08:44 WBC 18.7 H RBC 3.99 L Hgb 8.9 L Hct 28.9 L MCV 72 L MCH 22.4 L MCHC 30.9 L RDW 18.9 H Plt Count 352 Carbonic Acid 1.06 HCO3/H2CO3 Ratio 23:1 ABG pH 7.47 H ABG pCO2 35.3 ABG pO2 60.7 L ABG HCO3 25.3 ABG O2 Saturation 92.9 L ABG Base Excess 1.9 FiO2 5L Sodium 139.4 Potassium 3.3 L Chloride 106 Carbon Dioxide 26 Anion Gap 7 BUN 20 Creatinine 0.60 Est GFR ( Amer) > 60 Est GFR (Non-Af Amer) > 60 Glucose 89 Calcium 8.2 L 09/24/16 09/24/16 09/25/16 19:10 19:10 00:35 Creatine Kinase 57 63 CK-MB (CK-2) 1.29 Troponin I 0.078 NT-Pro-B Natriuret Pep 576 H 02/09/25/16 09/25/16 00:35 06:59 06:59 Creatine Kinase 60 CK-MB (CK-2) 1.53 1.71 Troponin I 0.040 0.019 NT-Pro-B Natriuret Pep Impressions: Chest CT 09/24/16 00:00 IMPRESSION: Significantly increased consolidation involving both lower lobes with new areas of patchy airspace disease present in the right middle and left upper lobes. Small bilateral pleural effusions are present. Head CT 09/24/16 00:00 IMPRESSION: Acute maxillary, ethmoid, and sphenoid sinusitis. CHRONIC CHANGES OF ATROPHY AND MICROVASCULAR ISCHEMIA. No acute intracranial findings. Chest X-Ray 09/26/16 06:00 IMPRESSION: Bilateral lower lobe consolidation left greater than right, increased compared to chest film 09/24/2016 Assessment & Plan - Diagnosis (1) Septicemia Is this a current diagnosis for this admission?: YesPlan: From the pneumonia and a urinary tract infectionAt the vancomycinTo cover the MRSA (2) Pneumonia Qualifiers: Pneumonia type: due to unspecified organism Laterality: left Lung location: unspecified part of lung Qualified Code(s): J18.9 - Pneumonia, unspecified organism Is this a current diagnosis for this admission?: YesPlan: Continues to IV antibiotic (3) Urinary tract infection Qualifiers: Urinary tract infection type: site unspecified Hematuria presence: with hematuria Qualified Code(s): N39.0 - Urinary tract infection, site not specified Is this a current diagnosis for this admission?: YesPlan: Wait for the urine culture (4) Paroxysmal atrial fibrillation Is this a current diagnosis for this admission?: YesPlan: Current continues the current medicAnd may be at [facility] the patient's blood pressure is running low (5) Respiratory failure Qualifiers: Chronicity: acute on chronic Respiratory failure complication: hypoxia and hypercapnia Qualified Code(s): J96.21 - Acute and chronic respiratory failure with hypoxia Is this a current diagnosis for this admission?: YesPlan: Currently on a BiPAP and follow with the pulmonary (6) Coronary artery disease Is this a current diagnosis for this admission?: YesPlan: Patient's cardiac enzyme is all stableNo sign of any acute [place] (7) Neurofibromatosis Is this a current diagnosis for this admission?: YesPlan: Chronic conditions (8) Altered mental status Qualifiers: Altered mental status type: unspecified Qualified Code(s): R41.82 - Altered mental status, unspecified Is this a current diagnosis for this admission?: YesPlan: Due to the sepsis patient's CT head is negative - Time Time Spent with patient: 15-24 minutes Critical Time spent with patient: 15-24 minutes Medications reviewed and adjusted accordingly: Yes Anticipated discharge: SNF - Inpatient Certification Medical Necessity: Significant Comorbidiites Make Outpatient Treatment Too Risky , Need Close Monitoring Due to Risk of Patient Decompensation, Need for IV Antibiotics 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
[2016-09-26] MEDS ORDERED: POTASSIUM CHLORIDE 20 MEQ/15 ML UDCUP PO ONE (14:30)
[2016-09-26] MEDS: LEVOFLOXACIN 500 MG/D5W RTU 500 MG/100 ML RTUPB IV SCH (17:00)
[2016-09-26 22:31] LABS: CREATININE RESULT 0.54 mg/dL (0.52-1.25)
[2016-09-26] MEDS: SIMVASTATIN 10 MG TABLET PO SCH (22:49)
[2016-09-27] MEDS: IPRATROPIUM/ALBUTEROL 0.5-2.5 MG/3 ML AMPUL NEB SCH ×4 (02:19→20:13)
[2016-09-27 05:06] LABS: HEMATOCRIT 28.2 % (37.9-51.0); HGB HCT DIFFERENCE -1.2; MEAN CORPUSCULAR HEMOGLOBIN 22.6 pg (27.0-33.4); MEAN CORPUSCULAR HGB CONC 31.9 g/dL (32.0-36.0); MEAN CORPUSCULAR VOLUME 71 fl (80-97); RED BLOOD COUNT 3.99 10^6/uL (4.35-5.55)
[2016-09-27 05:20] LABS: ANION GAP 7 (5-19); BLOOD UREA NITROGEN 17 mg/dL (7-20); CALCIUM 8.5 mg/dL (8.4-10.2); CARBON DIOXIDE 26 mmol/L (22-30); CHLORIDE 104 mmol/L (98-107); CREATININE RESULT 0.58 mg/dL (0.52-1.25); GLUCOSE 104 mg/dL (75-110); POTASSIUM 3.7 mmol/L (3.6-5.0); SODIUM 136.8 mmol/L (137-145)
[2016-09-27] MEDS: CEFEPIME 1 GM/D5W RTU 1 GM/50 ML RTUPB IV SCH ×2 (05:25→17:01)
[2016-09-27 05:26] LABS: BASOPHILS % (MANUAL) 0 % (0-2); EOSINOPHILS % (MANUAL) 1 % (0-6); LYMPHOCYTES % (MANUAL) 3 % (13-45); TOTAL CELLS COUNTED 100
[2016-09-27 05:28] LABS: HYPOCHROMASIA 1+; POLYCHROMASIA SLIGHT; TOXIC GRANULATION SLIGHT
[2016-09-27 05:29] LABS: ANISOCYTOSIS 2+; BURR CELLS SLIGHT; MICROCYTOSIS 1+; OVALOCYTES 1+; POIKILOCYTOSIS 1+
[2016-09-27] MEDS: ENOXAPARIN SODIUM INJ 40 MG/0.4 ML DISP.SYRIN SUBCUT SCH (07:55)
[2016-09-27] MEDS: CETIRIZINE 10 MG TABLET PO SCH (09:39)
[2016-09-27] MEDS: ASPIRIN 81 MG TABLET, CHEWABLE PO SCH (09:39)
[2016-09-27] MEDS: TAMSULOSIN HCL 0.4 MG CAP.SR.24H PO SCH (09:39)
[2016-09-27] MEDS: FAMOTIDINE 20 MG TABLET PO SCH ×2 (09:39→21:26)
[2016-09-27] MEDS: DILTIAZEM HCL 120 MG CAP.SR.24H PO SCH (09:40)
[2016-09-27] MEDS: FLUTICASONE/SALMETEROL DISKUS 250-50 MCG/DOSE IH SCH ×2 (09:42→21:33)
[2016-09-27] MEDS: TIOTROPIUM BROMIDE DPI 5 CAP/KIT (18 MCG/CAP) IH SCH (09:42)
[2016-09-27] MEDS: VANCOMYCIN HCL 750 MG in DEXTROSE 5%-WATER 250 ML IV SCH (09:43)
[2016-09-27] MEDS: DRONEDARONE HYDROCHLORIDE 400 MG TABLET PO SCH ×2 (09:44→21:26)
--- NOTE | 2016-09-27 16:12 | PDOC PROGRESS REPORT ---
Subjective Progress Note for:: 09/27/16 Subjective:: Patient was seen by the bedside, he was admitted because of gram positives septicemia and severe pneumonia. Physical Exam Vital Signs: Temp Pulse Resp BP Pulse Ox 97.6 F 93 19 106/54 L 95 09/27/16 15:17 09/27/16 15:17 09/27/16 15:17 09/27/16 15:17 09/27/16 15:17 Intake & Output 09/26/16 09/27/16 09/28/16 06:59 06:59 06:59 Intake Total 953 1385 260 Output Total 1010 1400 600 Balance -57 -15 -340 General appearance: PRESENT: no acute distress Eye exam: PRESENT: PERRLA Respiratory exam: PRESENT: crackles Cardiovascular exam: PRESENT: +S1, +S2 GI/Abdominal exam: PRESENT: soft Results Laboratory Results: 09/27/16 04:25 09/27/16 04:25 09/26/16 09/27/16 09/27/16 21:56 04:25 04:25 WBC 15.0 H RBC 3.99 L Hgb 9.0 L Hct 28.2 L MCV 71 L MCH 22.6 L MCHC 31.9 L RDW 19.0 H Plt Count 346 Seg Neutrophils % Not Reportable Lymphocytes % Not Reportable Monocytes % Not Reportable Eosinophils % Not Reportable Basophils % Not Reportable Absolute Neutrophils Not Reportable Absolute Lymphocytes Not Reportable Absolute Monocytes Not Reportable Absolute Eosinophils Not Reportable Absolute Basophils Not Reportable Sodium 136.8 L Potassium 3.7 Chloride 104 Carbon Dioxide 26 Anion Gap 7 BUN 17 Creatinine 0.54 0.58 Est GFR ( Amer) > 60 > 60 Est GFR (Non-Af Amer) > 60 > 60 Glucose 104 Calcium 8.5 09/24/16 09/24/16 09/25/16 19:10 19:10 00:35 Creatine Kinase 57 63 CK-MB (CK-2) 1.29 Troponin I 0.078 NT-Pro-B Natriuret Pep 576 H 09/25/16 09/25/16 09/25/16 00:35 06:59 06:59 Creatine Kinase 60 CK-MB (CK-2) 1.53 1.71 Troponin I 0.040 0.019 NT-Pro-B Natriuret Pep Impressions: Chest CT 09/24/16 00:00 IMPRESSION: Significantly increased consolidation involving both lower lobes with new areas of patchy airspace disease present in the right middle and left upper lobes. Small bilateral pleural effusions are present. Head CT 09/24/16 00:00 IMPRESSION: Acute maxillary, ethmoid, and sphenoid sinusitis. CHRONIC CHANGES OF ATROPHY AND MICROVASCULAR ISCHEMIA. No acute intracranial findings. Chest X-Ray 09/26/16 06:00 IMPRESSION: Bilateral lower lobe consolidation left greater than right, increased compared to chest film 09/24/2016 Assessment & Plan - Diagnosis (1) Gram positive septicemia Is this a current diagnosis for this admission?: YesPlan: Patient presently on intravenous vancomycin and Levaquin, we will continue both medications (2) Hypertension Qualifiers: Hypertension type: essential hypertension Qualified Code(s): I10 - Essential (primary) hypertension Is this a current diagnosis for this admission?: Yes (3) Paroxysmal atrial fibrillation Is this a current diagnosis for this admission?: Yes (4) Pneumonia Qualifiers: Pneumonia type: due to unspecified organism Laterality: right Lung location: lower lobe of lung Qualified Code(s): J18.1 - Lobar pneumonia, unspecified organism Is this a current diagnosis for this admission?: Yes (5) Sepsis Qualifiers: Sepsis type: sepsis due to unspecified organism Qualified Code(s): A41.9 - Sepsis, unspecified organism Is this a current diagnosis for this admission?: Yes (6) Escherichia coli urinary tract infection Is this a current diagnosis for this admission?: Yes
[2016-09-27] MEDS: LEVOFLOXACIN 500 MG/D5W RTU 500 MG/100 ML RTUPB IV SCH (17:00)
[2016-09-27] MEDS: SIMVASTATIN 10 MG TABLET PO SCH (21:26)
[2016-09-27] MEDS: VANCOMYCIN HCL 1,000 MG in DEXTROSE 5%-WATER 250 ML IV SCH (21:26)
[2016-09-28] MEDS: IPRATROPIUM/ALBUTEROL 0.5-2.5 MG/3 ML AMPUL NEB SCH ×4 (02:06→19:51)
[2016-09-28] MEDS: CEFEPIME 1 GM/D5W RTU 1 GM/50 ML RTUPB IV SCH ×2 (05:39→17:06)
[2016-09-28 06:01] LABS: ANION GAP 6 (5-19); BLOOD UREA NITROGEN 16 mg/dL (7-20); CALCIUM 8.6 mg/dL (8.4-10.2); CARBON DIOXIDE 28 mmol/L (22-30); CHLORIDE 101 mmol/L (98-107); CREATININE RESULT 0.62 mg/dL (0.52-1.25); GLUCOSE 94 mg/dL (75-110); POTASSIUM 3.8 mmol/L (3.6-5.0); SODIUM 135.4 mmol/L (137-145)
[2016-09-28 06:05] LABS: HEMATOCRIT 28.7 % (37.9-51.0); HEMOGLOBIN 9.2 g/dL (13.5-17.0); HGB HCT DIFFERENCE -1.1; MEAN CORPUSCULAR HEMOGLOBIN 22.8 pg (27.0-33.4); MEAN CORPUSCULAR VOLUME 71 fl (80-97); RED BLOOD COUNT 4.03 10^6/uL (4.35-5.55); RED CELL DISTRIBUTION WIDTH 18.5 % (11.5-14.0); WHITE BLOOD COUNT 12.7 10^3/uL (4.0-10.5)
[2016-09-28 06:38] LABS: BASOPHILS % (MANUAL) 0 % (0-2); EOSINOPHILS % (MANUAL) 3 % (0-6); LYMPHOCYTES % (MANUAL) 4 % (13-45); TOTAL CELLS COUNTED 100
[2016-09-28 06:41] LABS: ANISOCYTOSIS 2+; BURR CELLS 1+; MICROCYTOSIS 1+; OVALOCYTES 1+; POIKILOCYTOSIS 2+; POLYCHROMASIA SLIGHT; ROULEAUX 1+
[2016-09-28] MEDS: ENOXAPARIN SODIUM INJ 40 MG/0.4 ML DISP.SYRIN SUBCUT SCH (07:42)
[2016-09-28] MEDS: FAMOTIDINE 20 MG TABLET PO SCH ×2 (09:32→21:51)
[2016-09-28] MEDS: CETIRIZINE 10 MG TABLET PO SCH (09:32)
[2016-09-28] MEDS: DILTIAZEM HCL 120 MG CAP.SR.24H PO SCH (09:32)
[2016-09-28] MEDS: TAMSULOSIN HCL 0.4 MG CAP.SR.24H PO SCH (09:32)
[2016-09-28] MEDS: ASPIRIN 81 MG TABLET, CHEWABLE PO SCH (09:32)
[2016-09-28] MEDS: DRONEDARONE HYDROCHLORIDE 400 MG TABLET PO SCH ×2 (09:34→21:52)
[2016-09-28] MEDS: TIOTROPIUM BROMIDE DPI 5 CAP/KIT (18 MCG/CAP) IH SCH (09:34)
[2016-09-28] MEDS: FLUTICASONE/SALMETEROL DISKUS 250-50 MCG/DOSE IH SCH ×2 (09:34→21:50)
[2016-09-28] MEDS: VANCOMYCIN HCL 1,000 MG in DEXTROSE 5%-WATER 250 ML IV SCH ×2 (10:39→21:47)
--- NOTE | 2016-09-28 16:06 | PDOC PROGRESS REPORT ---
Subjective Subjective:: Patient was seen by the bedside, he was admitted because of gram positives septicemia and severe pneumonia. Physical Exam Vital Signs: Temp Pulse Resp BP Pulse Ox 97.7 F 85 12 101/47 L 96 09/28/16 12:20 09/28/16 14:00 09/28/16 13:06 09/28/16 12:20 09/28/16 13:06 Intake & Output 09/27/16 09/28/16 09/29/16 06:59 06:59 06:59 Intake Total 1385 1347 118 Output Total 1400 1850 400 Balance -15 -503 -282 Weight 57.6 kg General appearance: PRESENT: no acute distress Eye exam: PRESENT: PERRLA Respiratory exam: PRESENT: crackles Cardiovascular exam: PRESENT: +S1, +S2 GI/Abdominal exam: PRESENT: soft Results Laboratory Results: 09/28/16 04:26 09/28/16 04:26 09/28/16 09/28/16 04:26 04:26 WBC 12.7 H RBC 4.03 L Hgb 9.2 L Hct 28.7 L MCV 71 L MCH 22.8 L MCHC 32.0 RDW 18.5 H Plt Count 348 Seg Neutrophils % Not Reportable Lymphocytes % Not Reportable Monocytes % Not Reportable Eosinophils % Not Reportable Basophils % Not Reportable Absolute Neutrophils Not Reportable Absolute Lymphocytes Not Reportable Absolute Monocytes Not Reportable Absolute Eosinophils Not Reportable Absolute Basophils Not Reportable Sodium 135.4 L Potassium 3.8 Chloride 101 Carbon Dioxide 28 Anion Gap 6 BUN 16 Creatinine 0.62 Est GFR ( Amer) > 60 Est GFR (Non-Af Amer) > 60 Glucose 94 Calcium 8.6 09/24/16 09/24/16 09/25/16 19:10 19:10 00:35 Creatine Kinase 57 63 CK-MB (CK-2) 1.29 Troponin I 0.078 NT-Pro-B Natriuret Pep 576 H 09/25/16 09/25/16 09/25/16 00:35 06:59 06:59 Creatine Kinase 60 CK-MB (CK-2) 1.53 1.71 Troponin I 0.040 0.019 NT-Pro-B Natriuret Pep Impressions: Chest CT 09/24/16 00:00 IMPRESSION: Significantly increased consolidation involving both lower lobes with new areas of patchy airspace disease present in the right middle and left upper lobes. Small bilateral pleural effusions are present. Head CT 09/24/16 00:00 IMPRESSION: Acute maxillary, ethmoid, and sphenoid sinusitis. CHRONIC CHANGES OF ATROPHY AND MICROVASCULAR ISCHEMIA. No acute intracranial findings. Chest X-Ray 09/26/16 06:00 IMPRESSION: Bilateral lower lobe consolidation left greater than right, increased compared to chest film 09/24/2016 Assessment & Plan - Diagnosis (1) Gram positive septicemia Is this a current diagnosis for this admission?: Yes (2) Hypertension Qualifiers: Hypertension type: essential hypertension Qualified Code(s): I10 - Essential (primary) hypertension Is this a current diagnosis for this admission?: Yes (3) Paroxysmal atrial fibrillation Is this a current diagnosis for this admission?: Yes (4) Pneumonia Qualifiers: Pneumonia type: due to unspecified organism Laterality: right Lung location: lower lobe of lung Qualified Code(s): J18.1 - Lobar pneumonia, unspecified organism Is this a current diagnosis for this admission?: Yes (5) Sepsis Qualifiers: Sepsis type: sepsis due to unspecified organism Qualified Code(s): A41.9 - Sepsis, unspecified organism Is this a current diagnosis for this admission?: Yes (6) Escherichia coli urinary tract infection Is this a current diagnosis for this admission?: Yes
[2016-09-28] MEDS: LEVOFLOXACIN 500 MG/D5W RTU 500 MG/100 ML RTUPB IV SCH (17:06)
[2016-09-28] MEDS: SIMVASTATIN 10 MG TABLET PO SCH (21:50)
[2016-09-29] MEDS: IPRATROPIUM/ALBUTEROL 0.5-2.5 MG/3 ML AMPUL NEB SCH ×4 (01:40→19:28)
[2016-09-29 05:11] LABS: HEMATOCRIT 28.8 % (37.9-51.0); HEMOGLOBIN 9.3 g/dL (13.5-17.0); HGB HCT DIFFERENCE -0.9; MEAN CORPUSCULAR HEMOGLOBIN 22.6 pg (27.0-33.4); MEAN CORPUSCULAR HGB CONC 32.1 g/dL (32.0-36.0); MEAN CORPUSCULAR VOLUME 71 fl (80-97); RED BLOOD COUNT 4.09 10^6/uL (4.35-5.55); RED CELL DISTRIBUTION WIDTH 18.9 % (11.5-14.0); WHITE BLOOD COUNT 13.9 10^3/uL (4.0-10.5)
[2016-09-29 05:21] LABS: ANION GAP 8 (5-19); BLOOD UREA NITROGEN 17 mg/dL (7-20); CALCIUM 8.7 mg/dL (8.4-10.2); CARBON DIOXIDE 27 mmol/L (22-30); CHLORIDE 100 mmol/L (98-107); GLUCOSE 98 mg/dL (75-110)
[2016-09-29] MEDS: CEFEPIME 1 GM/D5W RTU 1 GM/50 ML RTUPB IV SCH ×2 (06:21→17:10)
[2016-09-29] MEDS: ENOXAPARIN SODIUM INJ 40 MG/0.4 ML DISP.SYRIN SUBCUT SCH (07:26)
[2016-09-29 07:37] LABS: ANISOCYTOSIS 2+; BASOPHILS % (MANUAL) 0 % (0-2); EOSINOPHILS % (MANUAL) 0 % (0-6); HYPOCHROMASIA 2+; LYMPHOCYTES % (MANUAL) 3 % (13-45); MICROCYTOSIS 2+; OVALOCYTES 1+; POIKILOCYTOSIS 1+; TOTAL CELLS COUNTED 100; TOXIC GRANULATION 2+; TOXIC VACUOLATION PRESENT
[2016-09-29 07:38] LABS: POLYCHROMASIA SLIGHT
--- NOTE | 2016-09-29 08:14 | PDOC PROGRESS REPORT ---
Subjective Progress Note for:: 09/29/16 Subjective:: Patient is doing better no fever no chest pain patient is complaining of itching in the back and in no other events happen the weekends Physical Exam Vital Signs: Temp Pulse Resp BP Pulse Ox 97.1 F 87 16 99/52 L 92 09/29/16 07:28 09/29/16 07:53 09/29/16 07:53 09/29/16 07:28 09/29/16 07:53 Intake & Output 09/28/16 09/29/16 09/30/16 06:59 06:59 06:59 Intake Total 1347 1503 Output Total 1850 1700 Balance -503 -197 Weight 57.6 kg 57 kg General appearance: PRESENT: no acute distress, well-developed, well-nourished Head exam: PRESENT: atraumatic, normocephalic Eye exam: PRESENT: conjunctiva pink, EOMI, PERRLA. ABSENT: scleral icterus Ear exam: PRESENT: normal external ear exam Mouth exam: PRESENT: moist, tongue midline Neck exam: PRESENT: full ROM. ABSENT: carotid bruit, JVD, lymphadenopathy, thyromegaly Respiratory exam: PRESENT: clear to auscultation sherley Cardiovascular exam: PRESENT: RRR. ABSENT: diastolic murmur, rubs, systolic murmur Pulses: PRESENT: normal dorsalis pedis pul, +2 pedal pulses bilateral Vascular exam: PRESENT: normal capillary refill GI/Abdominal exam: PRESENT: normal bowel sounds, soft. ABSENT: distended, guarding, mass, organolmegaly, rebound, tenderness Rectal exam: PRESENT: deferred Neurological exam: PRESENT: alert, awake, oriented to person, oriented to place , CN II-XII grossly intact. ABSENT: motor sensory deficit Psychiatric exam: PRESENT: appropriate affect, normal mood. ABSENT: homicidal ideation, suicidal ideation Skin exam: PRESENT: dry, intact, warm. ABSENT: cyanosis, rash Results Laboratory Results: 09/29/16 04:00 09/29/16 04:00 09/29/16 09/29/16 04:00 04:00 WBC 13.9 H RBC 4.09 L Hgb 9.3 L Hct 28.8 L MCV 71 L MCH 22.6 L MCHC 32.1 RDW 18.9 H Plt Count 328 Seg Neutrophils % Not Reportable Lymphocytes % Not Reportable Monocytes % Not Reportable Eosinophils % Not Reportable Basophils % Not Reportable Absolute Neutrophils Not Reportable Absolute Lymphocytes Not Reportable Absolute Monocytes Not Reportable Absolute Eosinophils Not Reportable Absolute Basophils Not Reportable Sodium 135.0 L Potassium 4.0 Chloride 100 Carbon Dioxide 27 Anion Gap 8 BUN 17 Creatinine 0.60 Est GFR ( Amer) > 60 Est GFR (Non-Af Amer) > 60 Glucose 98 Calcium 8.7 09/24/16 09/24/16 09/25/16 19:10 19:10 00:35 Creatine Kinase 57 63 CK-MB (CK-2) 1.29 Troponin I 0.078 NT-Pro-B Natriuret Pep 576 H 09/25/16 09/25/16 09/25/16 00:35 06:59 06:59 Creatine Kinase 60 CK-MB (CK-2) 1.53 1.71 Troponin I 0.040 0.019 NT-Pro-B Natriuret Pep Impressions: Chest CT 09/24/16 00:00 IMPRESSION: Significantly increased consolidation involving both lower lobes with new areas of patchy airspace disease present in the right middle and left upper lobes. Small bilateral pleural effusions are present. Head CT 09/24/16 00:00 IMPRESSION: Acute maxillary, ethmoid, and sphenoid sinusitis. CHRONIC CHANGES OF ATROPHY AND MICROVASCULAR ISCHEMIA. No acute intracranial findings. Chest X-Ray 09/26/16 06:00 IMPRESSION: Bilateral lower lobe consolidation left greater than right, increased compared to chest film 09/24/2016 Assessment & Plan - Diagnosis (1) Septicemia Is this a current diagnosis for this admission?: YesPlan: From the pneumonia and a urinary tract infectionAt the vancomycinTo cover the MRSA (2) Pneumonia Qualifiers: Pneumonia type: due to unspecified organism Laterality: left Lung location: unspecified part of lung Qualified Code(s): J18.9 - Pneumonia, unspecified organism Is this a current diagnosis for this admission?: YesPlan: Continues to IV antibiotic (3) Urinary tract infection Qualifiers: Urinary tract infection type: site unspecified Hematuria presence: with hematuria Qualified Code(s): N39.0 - Urinary tract infection, site not specified Is this a current diagnosis for this admission?: YesPlan: Wait for the urine culture (4) Paroxysmal atrial fibrillation Is this a current diagnosis for this admission?: YesPlan: Current continues the current medicAnd may be at the digoxinWhile the patient's blood pressure is running low (5) Respiratory failure Qualifiers: Chronicity: acute on chronic Respiratory failure complication: hypoxia and hypercapnia Qualified Code(s): J96.21 - Acute and chronic respiratory failure with hypoxia Is this a current diagnosis for this admission?: YesPlan: Currently on a BiPAP and follow with the pulmonary (6) Coronary artery disease Is this a current diagnosis for this admission?: YesPlan: Patient's cardiac enzyme is all stableNo sign of any acute [place] (7) Neurofibromatosis Is this a current diagnosis for this admission?: YesPlan: Chronic conditions (8) Altered mental status Qualifiers: Altered mental status type: unspecified Qualified Code(s): R41.82 - Altered mental status, unspecified Is this a current diagnosis for this admission?: Yes - Time Time Spent with patient: 15-24 minutes Medications reviewed and adjusted accordingly: Yes Anticipated discharge: SNF - Inpatient Certification Medical Necessity: Significant Comorbidiites Make Outpatient Treatment Too Risky , Need Close Monitoring Due to Risk of Patient Decompensation, Need for IV Antibiotics Post Hospital Care: D/C Industrial Energy Engineer Documentation - Plan Summary Plan Summary: Continues IV antibiotic. The blood cultures urine culture. The chest x-ray
[2016-09-29] MEDS: FLUTICASONE/SALMETEROL DISKUS 250-50 MCG/DOSE IH SCH ×2 (09:34→22:15)
[2016-09-29] MEDS: FAMOTIDINE 20 MG TABLET PO SCH ×2 (09:35→22:16)
[2016-09-29] MEDS: TIOTROPIUM BROMIDE DPI 5 CAP/KIT (18 MCG/CAP) IH SCH (09:35)
[2016-09-29] MEDS: TAMSULOSIN HCL 0.4 MG CAP.SR.24H PO SCH (09:35)
[2016-09-29] MEDS: DRONEDARONE HYDROCHLORIDE 400 MG TABLET PO SCH ×2 (09:35→22:16)
[2016-09-29] MEDS: ASPIRIN 81 MG TABLET, CHEWABLE PO SCH (09:36)
[2016-09-29] MEDS: CETIRIZINE 10 MG TABLET PO SCH (09:36)
[2016-09-29] MEDS: DILTIAZEM HCL 120 MG CAP.SR.24H PO SCH (09:37)
[2016-09-29] MEDS: VANCOMYCIN HCL 1,000 MG in DEXTROSE 5%-WATER 250 ML IV SCH (10:16)
[2016-09-29 10:30] LABS: CREATININE RESULT 0.62 mg/dL (0.52-1.25)
[2016-09-29] MEDS: LEVOFLOXACIN 500 MG/D5W RTU 500 MG/100 ML RTUPB IV SCH (17:09)
[2016-09-29] MEDS: SIMVASTATIN 10 MG TABLET PO SCH (22:16)
[2016-09-30] MEDS: IPRATROPIUM/ALBUTEROL 0.5-2.5 MG/3 ML AMPUL NEB SCH ×4 (02:25→19:58)
[2016-09-30 04:58] LABS: HEMATOCRIT 26.4 % (37.9-51.0); HEMOGLOBIN 8.7 g/dL (13.5-17.0); HGB HCT DIFFERENCE -0.3; MEAN CORPUSCULAR HEMOGLOBIN 23.1 pg (27.0-33.4); MEAN CORPUSCULAR HGB CONC 32.8 g/dL (32.0-36.0); MEAN CORPUSCULAR VOLUME 70 fl (80-97); RED BLOOD COUNT 3.76 10^6/uL (4.35-5.55); RED CELL DISTRIBUTION WIDTH 19.4 % (11.5-14.0); WHITE BLOOD COUNT 12.4 10^3/uL (4.0-10.5)
[2016-09-30 05:08] LABS: ANION GAP 8 (5-19); BLOOD UREA NITROGEN 16 mg/dL (7-20); CALCIUM 8.5 mg/dL (8.4-10.2); CARBON DIOXIDE 27 mmol/L (22-30); CHLORIDE 99 mmol/L (98-107); CREATININE RESULT 0.61 mg/dL (0.52-1.25); GLUCOSE 80 mg/dL (75-110); POTASSIUM 3.9 mmol/L (3.6-5.0)
[2016-09-30 05:29] LABS: BASOPHILS % (MANUAL) 0 % (0-2); EOSINOPHILS % (MANUAL) 5 % (0-6); LYMPHOCYTES % (MANUAL) 9 % (13-45); TOTAL CELLS COUNTED 100
[2016-09-30 05:31] LABS: ANISOCYTOSIS 2+; HYPOCHROMASIA SLIGHT; MICROCYTOSIS 2+; OVALOCYTES SLIGHT; POIKILOCYTOSIS SLIGHT; POLYCHROMASIA SLIGHT; TOXIC GRANULATION SLIGHT; TOXIC VACUOLATION PRESENT
[2016-09-30] MEDS: CEFEPIME 1 GM/D5W RTU 1 GM/50 ML RTUPB IV SCH ×2 (05:32→17:30)
[2016-09-30] MEDS: FLUTICASONE/SALMETEROL DISKUS 250-50 MCG/DOSE IH SCH ×2 (09:44→21:38)
[2016-09-30] MEDS: ENOXAPARIN SODIUM INJ 40 MG/0.4 ML DISP.SYRIN SUBCUT SCH (09:44)
[2016-09-30] MEDS: TIOTROPIUM BROMIDE DPI 5 CAP/KIT (18 MCG/CAP) IH SCH (09:45)
[2016-09-30] MEDS: FAMOTIDINE 20 MG TABLET PO SCH ×2 (09:45→21:38)
[2016-09-30] MEDS: DILTIAZEM HCL 120 MG CAP.SR.24H PO SCH (09:45)
[2016-09-30] MEDS: ASPIRIN 81 MG TABLET, CHEWABLE PO SCH (09:45)
[2016-09-30] MEDS: TAMSULOSIN HCL 0.4 MG CAP.SR.24H PO SCH (09:46)
[2016-09-30] MEDS: DRONEDARONE HYDROCHLORIDE 400 MG TABLET PO SCH ×2 (09:46→21:39)
[2016-09-30] MEDS: CETIRIZINE 10 MG TABLET PO SCH (09:46)
--- NOTE | 2016-09-30 12:32 | PDOC PROGRESS REPORT ---
Subjective Progress Note for:: 09/30/16 Subjective:: pt is doing well denied any chest pain still cough Physical Exam Vital Signs: Temp Pulse Resp BP Pulse Ox 97.7 F 91 17 104/52 L 92 09/30/16 07:18 09/30/16 08:05 09/30/16 08:05 09/30/16 07:18 09/30/16 07:18 Intake & Output 09/29/16 09/30/16 10/01/16 06:59 06:59 06:59 Intake Total 1503 1061 Output Total 1700 1350 Balance -197 -289 Weight 57 kg 57.4 kg General appearance: PRESENT: no acute distress Eye exam: PRESENT: PERRLA Mouth exam: PRESENT: neck supple Respiratory exam: PRESENT: decreased breath sounds. ABSENT: wheezes Cardiovascular exam: PRESENT: +S1, +S2 GI/Abdominal exam: PRESENT: normal bowel sounds, soft. ABSENT: tenderness Extremities exam: ABSENT: pedal edema Neurological exam: PRESENT: alert, awake, oriented to person Skin exam: PRESENT: dry Results Laboratory Results: 09/30/16 03:52 09/30/16 03:52 09/30/16 09/30/16 03:52 03:52 WBC 12.4 H RBC 3.76 L Hgb 8.7 L Hct 26.4 L MCV 70 L MCH 23.1 L MCHC 32.8 RDW 19.4 H Plt Count 322 Seg Neutrophils % Not Reportable Lymphocytes % Not Reportable Monocytes % Not Reportable Eosinophils % Not Reportable Basophils % Not Reportable Absolute Neutrophils Not Reportable Absolute Lymphocytes Not Reportable Absolute Monocytes Not Reportable Absolute Eosinophils Not Reportable Absolute Basophils Not Reportable Sodium 134.0 L Potassium 3.9 Chloride 99 Carbon Dioxide 27 Anion Gap 8 BUN 16 Creatinine 0.61 Est GFR ( Amer) > 60 Est GFR (Non-Af Amer) > 60 Glucose 80 Calcium 8.5 09/24/16 09/24/16 09/25/16 19:10 19:10 00:35 Creatine Kinase 57 63 CK-MB (CK-2) 1.29 Troponin I 0.078 NT-Pro-B Natriuret Pep 576 H 09/25/16 09/25/16 09/25/16 00:35 06:59 06:59 Creatine Kinase 60 CK-MB (CK-2) 1.53 1.71 Troponin I 0.040 0.019 NT-Pro-B Natriuret Pep Impressions: Chest CT 09/24/16 00:00 IMPRESSION: Significantly increased consolidation involving both lower lobes with new areas of patchy airspace disease present in the right middle and left upper lobes. Small bilateral pleural effusions are present. Head CT 09/24/16 00:00 IMPRESSION: Acute maxillary, ethmoid, and sphenoid sinusitis. CHRONIC CHANGES OF ATROPHY AND MICROVASCULAR ISCHEMIA. No acute intracranial findings. Chest X-Ray 09/29/16 00:00 IMPRESSION: Probable asymmetric pulmonary edema left greater than right. There are small effusions. Interstitial pneumonia is thought to be less likely. Assessment & Plan - Diagnosis (1) Septicemia Is this a current diagnosis for this admission?: YesPlan: blood culture neg cont cefepim (2) Pneumonia Qualifiers: Pneumonia type: due to unspecified organism Laterality: left Lung location: unspecified part of lung Qualified Code(s): J18.9 - Pneumonia, unspecified organism Is this a current diagnosis for this admission?: YesPlan: cont cefepim/levaquin (3) Urinary tract infection Qualifiers: Urinary tract infection type: site unspecified Hematuria presence: with hematuria Qualified Code(s): N39.0 - Urinary tract infection, site not specified Is this a current diagnosis for this admission?: YesPlan: Wait for the urine culture (4) Paroxysmal atrial fibrillation Is this a current diagnosis for this admission?: YesPlan: Current continues the current medicAnd may be at the digoxinWhile the patient's blood pressure is running low (5) Respiratory failure Qualifiers: Chronicity: acute on chronic Respiratory failure complication: hypoxia and hypercapnia Qualified Code(s): J96.21 - Acute and chronic respiratory failure with hypoxia Is this a current diagnosis for this admission?: YesPlan: Currently on a BiPAP and follow with the pulmonary (6) Coronary artery disease Is this a current diagnosis for this admission?: YesPlan: Patient's cardiac enzyme is all stableNo sign of any acute [place] (7) Neurofibromatosis Is this a current diagnosis for this admission?: YesPlan: Chronic conditions (8) Altered mental status Qualifiers: Altered mental status type: unspecified Qualified Code(s): R41.82 - Altered mental status, unspecified Is this a current diagnosis for this admission?: YesPlan: Due to the sepsis patient's CT head is negative - Time Time Spent with patient: 15-24 minutes Critical Time spent with patient: 15-24 minutes Medications reviewed and adjusted accordingly: Yes Anticipated discharge: SNF - Inpatient Certification Medical Necessity: Significant Comorbidiites Make Outpatient Treatment Too Risky , Need Close Monitoring Due to Risk of Patient Decompensation, Need for IV Antibiotics Post Hospital Care: D/C Manager Technical Sales Documentation
[2016-09-30] MEDS: LEVOFLOXACIN 500 MG/D5W RTU 500 MG/100 ML RTUPB IV SCH (17:31)
[2016-09-30] MEDS: SIMVASTATIN 10 MG TABLET PO SCH (21:39)
[2016-10-01] MEDS: IPRATROPIUM/ALBUTEROL 0.5-2.5 MG/3 ML AMPUL NEB SCH ×4 (02:19→19:50)
[2016-10-01 04:30] LABS: HEMATOCRIT 26.9 % (37.9-51.0); HEMOGLOBIN 8.6 g/dL (13.5-17.0); HGB HCT DIFFERENCE -1.1; MEAN CORPUSCULAR HEMOGLOBIN 22.3 pg (27.0-33.4); MEAN CORPUSCULAR HGB CONC 31.8 g/dL (32.0-36.0); MEAN CORPUSCULAR VOLUME 70 fl (80-97); RED BLOOD COUNT 3.83 10^6/uL (4.35-5.55); RED CELL DISTRIBUTION WIDTH 19.2 % (11.5-14.0); WHITE BLOOD COUNT 11.6 10^3/uL (4.0-10.5)
[2016-10-01 04:53] LABS: ANION GAP 8 (5-19); BLOOD UREA NITROGEN 18 mg/dL (7-20); CALCIUM 8.3 mg/dL (8.4-10.2); CARBON DIOXIDE 27 mmol/L (22-30); CHLORIDE 99 mmol/L (98-107); CREATININE RESULT 0.64 mg/dL (0.52-1.25); GLUCOSE 88 mg/dL (75-110); POTASSIUM 4.1 mmol/L (3.6-5.0); SODIUM 133.5 mmol/L (137-145)
[2016-10-01 04:59] LABS: BASOPHILS % (MANUAL) 0 % (0-2); EOSINOPHILS % (MANUAL) 1 % (0-6); LYMPHOCYTES % (MANUAL) 4 % (13-45); TOTAL CELLS COUNTED 100
[2016-10-01 05:01] LABS: ANISOCYTOSIS 2+; MICROCYTOSIS 1+; OVALOCYTES SLIGHT; POIKILOCYTOSIS SLIGHT; POLYCHROMASIA 1+; TOXIC VACUOLATION PRESENT
[2016-10-01] MEDS: CEFEPIME 1 GM/D5W RTU 1 GM/50 ML RTUPB IV SCH ×2 (05:25→17:34)
[2016-10-01] MEDS: ENOXAPARIN SODIUM INJ 40 MG/0.4 ML DISP.SYRIN SUBCUT SCH (08:04)
--- NOTE | 2016-10-01 08:05 | PDOC PROGRESS REPORT ---
Subjective Progress Note for:: 10/01/16 Subjective:: Patient is doing fair no chest pain no shortness of the breath and patient's cough is getting much better to. Physical Exam Vital Signs: Temp Pulse Resp BP Pulse Ox 97.7 F 87 17 100/56 L 96 10/01/16 07:34 10/01/16 07:34 10/01/16 07:34 10/01/16 07:34 10/01/16 07:34 Intake & Output 09/30/16 10/01/16 10/02/16 06:59 06:59 06:59 Intake Total 1061 1431 Output Total 1350 700 Balance -289 731 Weight 57.4 kg 57.1 kg General appearance: PRESENT: no acute distress, well-developed, well-nourished Head exam: PRESENT: atraumatic, normocephalic Eye exam: PRESENT: conjunctiva pink, EOMI, PERRLA. ABSENT: scleral icterus Ear exam: PRESENT: normal external ear exam Mouth exam: PRESENT: moist, tongue midline Neck exam: PRESENT: full ROM. ABSENT: carotid bruit, JVD, lymphadenopathy, thyromegaly Respiratory exam: PRESENT: clear to auscultation sherley Cardiovascular exam: PRESENT: RRR. ABSENT: diastolic murmur, rubs, systolic murmur Pulses: PRESENT: normal dorsalis pedis pul, +2 pedal pulses bilateral Vascular exam: PRESENT: normal capillary refill GI/Abdominal exam: PRESENT: normal bowel sounds, soft. ABSENT: distended, guarding, mass, organolmegaly, rebound, tenderness Rectal exam: PRESENT: deferred Neurological exam: PRESENT: alert, awake, oriented to person, oriented to place , oriented to time, oriented to situation, CN II-XII grossly intact. ABSENT: motor sensory deficit Psychiatric exam: PRESENT: appropriate affect, normal mood. ABSENT: homicidal ideation, suicidal ideation Skin exam: PRESENT: dry, intact, warm. ABSENT: cyanosis, rash Results Laboratory Results: 10/01/16 03:56 10/01/16 03:56 10/01/16 10/01/16 03:56 03:56 WBC 11.6 H RBC 3.83 L Hgb 8.6 L Hct 26.9 L MCV 70 L MCH 22.3 L MCHC 31.8 L RDW 19.2 H Plt Count 361 Seg Neutrophils % Not Reportable Lymphocytes % Not Reportable Monocytes % Not Reportable Eosinophils % Not Reportable Basophils % Not Reportable Absolute Neutrophils Not Reportable Absolute Lymphocytes Not Reportable Absolute Monocytes Not Reportable Absolute Eosinophils Not Reportable Absolute Basophils Not Reportable Sodium 133.5 L Potassium 4.1 Chloride 99 Carbon Dioxide 27 Anion Gap 8 BUN 18 Creatinine 0.64 Est GFR ( Amer) > 60 Est GFR (Non-Af Amer) > 60 Glucose 88 Calcium 8.3 L 09/24/16 09/24/16 09/25/16 19:10 19:10 00:35 Creatine Kinase 57 63 CK-MB (CK-2) 1.29 Troponin I 0.078 NT-Pro-B Natriuret Pep 576 H 09/25/16 09/25/16 09/25/16 00:35 06:59 06:59 Creatine Kinase 60 CK-MB (CK-2) 1.53 1.71 Troponin I 0.040 0.019 NT-Pro-B Natriuret Pep Impressions: Chest CT 09/24/16 00:00 IMPRESSION: Significantly increased consolidation involving both lower lobes with new areas of patchy airspace disease present in the right middle and left upper lobes. Small bilateral pleural effusions are present. Head CT 09/24/16 00:00 IMPRESSION: Acute maxillary, ethmoid, and sphenoid sinusitis. CHRONIC CHANGES OF ATROPHY AND MICROVASCULAR ISCHEMIA. No acute intracranial findings. Chest X-Ray 09/29/16 00:00 IMPRESSION: Probable asymmetric pulmonary edema left greater than right. There are small effusions. Interstitial pneumonia is thought to be less likely. Assessment & Plan - Diagnosis (1) Septicemia Is this a current diagnosis for this admission?: YesPlan: All blood culture and urine cultures come back negative (2) Pneumonia Qualifiers: Pneumonia type: due to unspecified organism Laterality: left Lung location: unspecified part of lung Qualified Code(s): J18.9 - Pneumonia, unspecified organism Is this a current diagnosis for this admission?: YesPlan: Continues the current antibiotic (3) Urinary tract infection Qualifiers: Urinary tract infection type: site unspecified Hematuria presence: with hematuria Qualified Code(s): N39.0 - Urinary tract infection, site not specified Is this a current diagnosis for this admission?: YesPlan: All resolving (4) Paroxysmal atrial fibrillation Is this a current diagnosis for this admission?: YesPlan: Not a candidate for any anticoagulations (5) Respiratory failure Qualifiers: Chronicity: acute on chronic Respiratory failure complication: hypoxia and hypercapnia Qualified Code(s): J96.21 - Acute and chronic respiratory failure with hypoxia Is this a current diagnosis for this admission?: YesPlan: Currently on a BiPAP and follow with the pulmonary (6) Coronary artery disease Is this a current diagnosis for this admission?: YesPlan: Patient's cardiac enzyme is all stableNo sign of any acute [place] (7) Neurofibromatosis Is this a current diagnosis for this admission?: YesPlan: Chronic conditions (8) Altered mental status Qualifiers: Altered mental status type: unspecified Qualified Code(s): R41.82 - Altered mental status, unspecified Is this a current diagnosis for this admission?: Yes - Time Time Spent with patient: 15-24 minutes Medications reviewed and adjusted accordingly: Yes Anticipated discharge: SNF Within: within 24 hours - Inpatient Certification Medical Necessity: Need for IV Antibiotics Post Hospital Care: D/C Senior Software Qa Engineer Documentation - Plan Summary Plan Summary: Continuous IV antibiotic and the patient's remained stable the next 24 hours change the by mouth antibiotic and possibly discharged to the intermediate
[2016-10-01] MEDS: ASPIRIN 81 MG TABLET, CHEWABLE PO SCH (09:48)
[2016-10-01] MEDS: CETIRIZINE 10 MG TABLET PO SCH (09:49)
[2016-10-01] MEDS: DILTIAZEM HCL 120 MG CAP.SR.24H PO SCH (09:51)
[2016-10-01] MEDS: DRONEDARONE HYDROCHLORIDE 400 MG TABLET PO SCH ×2 (09:53→22:58)
[2016-10-01] MEDS: FAMOTIDINE 20 MG TABLET PO SCH ×2 (09:54→22:58)
[2016-10-01] MEDS: TAMSULOSIN HCL 0.4 MG CAP.SR.24H PO SCH (09:55)
[2016-10-01] MEDS: FLUTICASONE/SALMETEROL DISKUS 250-50 MCG/DOSE IH SCH ×2 (09:56→22:57)
[2016-10-01] MEDS: TIOTROPIUM BROMIDE DPI 5 CAP/KIT (18 MCG/CAP) IH SCH (11:13)
[2016-10-01] MEDS: LEVOFLOXACIN 500 MG/D5W RTU 500 MG/100 ML RTUPB IV SCH (17:35)
[2016-10-01] MEDS: SIMVASTATIN 10 MG TABLET PO SCH (22:58)
[2016-10-02] MEDS: IPRATROPIUM/ALBUTEROL 0.5-2.5 MG/3 ML AMPUL NEB SCH ×4 (02:46→19:48)
[2016-10-02 06:23] LABS: ANION GAP 7 (5-19); BLOOD UREA NITROGEN 17 mg/dL (7-20); CALCIUM 8.5 mg/dL (8.4-10.2); CARBON DIOXIDE 29 mmol/L (22-30); CHLORIDE 101 mmol/L (98-107); CREATININE RESULT 0.67 mg/dL (0.52-1.25); GLUCOSE 75 mg/dL (75-110); POTASSIUM 4.2 mmol/L (3.6-5.0); SODIUM 136.8 mmol/L (137-145)
[2016-10-02] MEDS ORDERED: BISACODYL 10 MG SUPP.RECT PR ONE (07:53)
--- NOTE | 2016-10-02 07:56 | PDOC PROGRESS REPORT ---
Subjective Progress Note for:: 10/02/16 Subjective:: Patient is doing well denied any chest pain or any shortness of the breath cough is also getting better. Still very weak patient still, no bowel movement and abdominal pain Physical Exam Vital Signs: Temp Pulse Resp BP Pulse Ox 98.3 F 81 20 100/74 96 10/02/16 04:04 10/02/16 07:38 10/02/16 07:38 10/02/16 04:04 10/02/16 07:38 Intake & Output 10/01/16 10/02/16 10/03/16 06:59 06:59 06:59 Intake Total 1431 536 Output Total 700 Balance 731 536 Weight 57.1 kg 56.1 kg General appearance: PRESENT: no acute distress, well-developed, well-nourished Head exam: PRESENT: atraumatic, normocephalic Eye exam: PRESENT: conjunctiva pink, EOMI, PERRLA. ABSENT: scleral icterus Ear exam: PRESENT: normal external ear exam Mouth exam: PRESENT: moist, tongue midline Neck exam: PRESENT: full ROM. ABSENT: carotid bruit, JVD, lymphadenopathy, thyromegaly Respiratory exam: PRESENT: clear to auscultation sherley Cardiovascular exam: PRESENT: RRR. ABSENT: diastolic murmur, rubs, systolic murmur Pulses: PRESENT: normal dorsalis pedis pul, +2 pedal pulses bilateral Vascular exam: PRESENT: normal capillary refill GI/Abdominal exam: PRESENT: normal bowel sounds, soft. ABSENT: distended, guarding, mass, organolmegaly, rebound, tenderness Rectal exam: PRESENT: deferred Neurological exam: PRESENT: alert, awake, oriented to person, oriented to place , oriented to time, oriented to situation, CN II-XII grossly intact. ABSENT: motor sensory deficit Psychiatric exam: PRESENT: appropriate affect, normal mood. ABSENT: homicidal ideation, suicidal ideation Skin exam: PRESENT: dry, intact, warm. ABSENT: cyanosis, rash Results Laboratory Results: 10/01/16 03:56 10/02/16 05:17 10/02/16 05:17 Sodium 136.8 L Potassium 4.2 Chloride 101 Carbon Dioxide 29 Anion Gap 7 BUN 17 Creatinine 0.67 Est GFR ( Amer) > 60 Est GFR (Non-Af Amer) > 60 Glucose 75 Calcium 8.5 09/29/16 11:30 Catheterized Urine Urine Culture - Final NO GROWTH 2 DAYS 09/24/16 09/24/16 09/25/16 19:10 19:10 00:35 Creatine Kinase 57 63 CK-MB (CK-2) 1.29 Troponin I 0.078 NT-Pro-B Natriuret Pep 576 H 09/25/16 09/25/16 09/25/16 00:35 06:59 06:59 Creatine Kinase 60 CK-MB (CK-2) 1.53 1.71 Troponin I 0.040 0.019 NT-Pro-B Natriuret Pep Impressions: Chest CT 09/24/16 00:00 IMPRESSION: Significantly increased consolidation involving both lower lobes with new areas of patchy airspace disease present in the right middle and left upper lobes. Small bilateral pleural effusions are present. Head CT 09/24/16 00:00 IMPRESSION: Acute maxillary, ethmoid, and sphenoid sinusitis. CHRONIC CHANGES OF ATROPHY AND MICROVASCULAR ISCHEMIA. No acute intracranial findings. Chest X-Ray 09/29/16 00:00 IMPRESSION: Probable asymmetric pulmonary edema left greater than right. There are small effusions. Interstitial pneumonia is thought to be less likely. Assessment & Plan - Diagnosis (1) Septicemia Is this a current diagnosis for this admission?: YesPlan: All blood culture and urine cultures come back negative (2) Pneumonia Qualifiers: Pneumonia type: due to unspecified organism Laterality: left Lung location: unspecified part of lung Qualified Code(s): J18.9 - Pneumonia, unspecified organism Is this a current diagnosis for this admission?: YesPlan: Continues the current antibiotic (3) Urinary tract infection Qualifiers: Urinary tract infection type: site unspecified Hematuria presence: with hematuria Qualified Code(s): N39.0 - Urinary tract infection, site not specified Is this a current diagnosis for this admission?: YesPlan: All resolving (4) Paroxysmal atrial fibrillation Is this a current diagnosis for this admission?: YesPlan: Not a candidate for any anticoagulations (5) Respiratory failure Qualifiers: Chronicity: acute on chronic Respiratory failure complication: hypoxia and hypercapnia Qualified Code(s): J96.21 - Acute and chronic respiratory failure with hypoxia Is this a current diagnosis for this admission?: YesPlan: Currently on a BiPAP and follow with the pulmonary (6) Coronary artery disease Is this a current diagnosis for this admission?: YesPlan: Patient's cardiac enzyme is all stableNo sign of any acute [place] (7) Neurofibromatosis Is this a current diagnosis for this admission?: YesPlan: Chronic conditions (8) Altered mental status Qualifiers: Altered mental status type: unspecified Qualified Code(s): R41.82 - Altered mental status, unspecified Is this a current diagnosis for this admission?: Yes - Time Time Spent with patient: 15-24 minutes Critical Time spent with patient: 15-24 minutes Medications reviewed and adjusted accordingly: Yes Anticipated discharge: SNF - Inpatient Certification Medical Necessity: Significant Comorbidiites Make Outpatient Treatment Too Risky , Need for IV Antibiotics Post Hospital Care: D/C Medical Radiation Tech Documentation - Plan Summary Plan Summary: We'll consult the discharge plan is still very weak think patient's continues to go to the [facility] facilities the assisted-living repeat the chest x- ray
[2016-10-02] MEDS: ENOXAPARIN SODIUM INJ 40 MG/0.4 ML DISP.SYRIN SUBCUT SCH (09:06)
[2016-10-02] MEDS: CETIRIZINE 10 MG TABLET PO SCH (09:07)
[2016-10-02] MEDS: DOCUSATE SODIUM 100 MG CAPSULE PO SCH ×2 (09:07→17:40)
[2016-10-02] MEDS: ASPIRIN 81 MG TABLET, CHEWABLE PO SCH (09:07)
[2016-10-02] MEDS: DILTIAZEM HCL 120 MG CAP.SR.24H PO SCH (09:08)
[2016-10-02] MEDS: TAMSULOSIN HCL 0.4 MG CAP.SR.24H PO SCH (09:09)
[2016-10-02] MEDS: FLUTICASONE/SALMETEROL DISKUS 250-50 MCG/DOSE IH SCH ×2 (09:09→21:29)
[2016-10-02] MEDS: DRONEDARONE HYDROCHLORIDE 400 MG TABLET PO SCH ×2 (09:09→21:29)
[2016-10-02] MEDS: FAMOTIDINE 20 MG TABLET PO SCH ×2 (09:09→21:29)
[2016-10-02] MEDS: TIOTROPIUM BROMIDE DPI 5 CAP/KIT (18 MCG/CAP) IH SCH (09:10)
[2016-10-02] MEDS: CEFEPIME 1 GM/D5W RTU 50 ML IV SCH (21:28)
[2016-10-02] MEDS: SIMVASTATIN 10 MG TABLET PO SCH (21:29)
[2016-10-03] MEDS: IPRATROPIUM/ALBUTEROL 0.5-2.5 MG/3 ML AMPUL NEB SCH ×4 (01:20→19:38)
[2016-10-03 05:10] LABS: HEMATOCRIT 28.4 % (37.9-51.0); HEMOGLOBIN 9.1 g/dL (13.5-17.0); HGB HCT DIFFERENCE -1.1; MEAN CORPUSCULAR HGB CONC 32.2 g/dL (32.0-36.0); MEAN CORPUSCULAR VOLUME 71 fl (80-97); RED BLOOD COUNT 3.98 10^6/uL (4.35-5.55); RED CELL DISTRIBUTION WIDTH 19.2 % (11.5-14.0); WHITE BLOOD COUNT 12.9 10^3/uL (4.0-10.5)
[2016-10-03 05:54] LABS: BASOPHILS % (MANUAL) 0 % (0-2); EOSINOPHILS % (MANUAL) 1 % (0-6); LYMPHOCYTES % (MANUAL) 7 % (13-45); TOTAL CELLS COUNTED 100
[2016-10-03 05:55] LABS: ANISOCYTOSIS 2+; HYPOCHROMASIA SLIGHT; MICROCYTOSIS 1+; OVALOCYTES SLIGHT; POLYCHROMASIA SLIGHT; TOXIC GRANULATION SLIGHT
--- NOTE | 2016-10-03 08:10 | PDOC PROGRESS REPORT ---
Subjective Progress Note for:: 10/03/16 Subjective:: Patient is doing fair to have a cough and productivity. No fever overnight no chest pain no shortness of the breath Physical Exam Vital Signs: Temp Pulse Resp BP Pulse Ox 97.6 F 95 22 H 113/56 L 96 10/03/16 04:00 10/03/16 04:00 10/03/16 04:00 10/03/16 04:00 10/03/16 04:00 Intake & Output 10/02/16 10/03/16 10/04/16 06:59 06:59 06:59 Intake Total 536 91 Balance 536 91 Weight 56.1 kg 55.2 kg General appearance: PRESENT: no acute distress, well-developed, well-nourished Head exam: PRESENT: atraumatic, normocephalic Eye exam: PRESENT: conjunctiva pink, EOMI, PERRLA. ABSENT: scleral icterus Ear exam: PRESENT: normal external ear exam Mouth exam: PRESENT: moist, tongue midline Neck exam: PRESENT: full ROM. ABSENT: carotid bruit, JVD, lymphadenopathy, thyromegaly Respiratory exam: PRESENT: decreased breath sounds Cardiovascular exam: PRESENT: RRR. ABSENT: diastolic murmur, rubs, systolic murmur Pulses: PRESENT: normal dorsalis pedis pul, +2 pedal pulses bilateral Vascular exam: PRESENT: normal capillary refill GI/Abdominal exam: PRESENT: normal bowel sounds, soft. ABSENT: distended, guarding, mass, organolmegaly, rebound, tenderness Rectal exam: PRESENT: deferred Neurological exam: PRESENT: alert, awake, oriented to person, oriented to place , oriented to time, oriented to situation, CN II-XII grossly intact. ABSENT: motor sensory deficit Psychiatric exam: PRESENT: appropriate affect, normal mood. ABSENT: homicidal ideation, suicidal ideation Skin exam: PRESENT: dry, intact, warm. ABSENT: cyanosis, rash Results Laboratory Results: 10/03/16 04:08 10/02/16 05:17 10/03/16 04:08 WBC 12.9 H RBC 3.98 L Hgb 9.1 L Hct 28.4 L MCV 71 L MCH 23.0 L MCHC 32.2 RDW 19.2 H Plt Count 405 Seg Neutrophils % Not Reportable Lymphocytes % Not Reportable Monocytes % Not Reportable Eosinophils % Not Reportable Basophils % Not Reportable Absolute Neutrophils Not Reportable Absolute Lymphocytes Not Reportable Absolute Monocytes Not Reportable Absolute Eosinophils Not Reportable Absolute Basophils Not Reportable 09/24/16 09/24/16 09/25/16 19:10 19:10 00:35 Creatine Kinase 57 63 CK-MB (CK-2) 1.29 Troponin I 0.078 NT-Pro-B Natriuret Pep 576 H 09/25/16 09/25/16 09/25/16 00:35 06:59 06:59 Creatine Kinase 60 CK-MB (CK-2) 1.53 1.71 Troponin I 0.040 0.019 NT-Pro-B Natriuret Pep Impressions: Chest CT 09/24/16 00:00 IMPRESSION: Significantly increased consolidation involving both lower lobes with new areas of patchy airspace disease present in the right middle and left upper lobes. Small bilateral pleural effusions are present. Head CT 09/24/16 00:00 IMPRESSION: Acute maxillary, ethmoid, and sphenoid sinusitis. CHRONIC CHANGES OF ATROPHY AND MICROVASCULAR ISCHEMIA. No acute intracranial findings. Chest X-Ray 10/02/16 00:00 IMPRESSION: Persistent left lower lobe consolidation worrisome for pneumonia. This is similar compared to chest films 09/29/2016 Assessment & Plan - Diagnosis (1) Septicemia Is this a current diagnosis for this admission?: YesPlan: All blood culture and urine cultures come back negative (2) Pneumonia Qualifiers: Pneumonia type: due to unspecified organism Laterality: left Lung location: unspecified part of lung Qualified Code(s): J18.9 - Pneumonia, unspecified organism Is this a current diagnosis for this admission?: YesPlan: Continues the current antibiotic (3) Urinary tract infection Qualifiers: Urinary tract infection type: site unspecified Hematuria presence: with hematuria Qualified Code(s): N39.0 - Urinary tract infection, site not specified Is this a current diagnosis for this admission?: YesPlan: All resolving (4) Paroxysmal atrial fibrillation Is this a current diagnosis for this admission?: YesPlan: Not a candidate for any anticoagulations (5) Respiratory failure Qualifiers: Chronicity: acute on chronic Respiratory failure complication: hypoxia and hypercapnia Qualified Code(s): J96.21 - Acute and chronic respiratory failure with hypoxia Is this a current diagnosis for this admission?: YesPlan: Currently on a BiPAP and follow with the pulmonary (6) Coronary artery disease Is this a current diagnosis for this admission?: YesPlan: Patient's cardiac enzyme is all stableNo sign of any acute [place] (7) Neurofibromatosis Is this a current diagnosis for this admission?: YesPlan: Chronic conditions (8) Altered mental status Qualifiers: Altered mental status type: unspecified Qualified Code(s): R41.82 - Altered mental status, unspecified Is this a current diagnosis for this admission?: Yes - Time Time Spent with patient: 15-24 minutes Medications reviewed and adjusted accordingly: Yes Anticipated discharge: SNF - Inpatient Certification Medical Necessity: Need Close Monitoring Due to Risk of Patient Decompensation, Need for IV Antibiotics Post Hospital Care: D/C Tread Cutter Documentation - Plan Summary Plan Summary: Continues to IV antibiotic and plan to send to the group home
[2016-10-03] MEDS: ENOXAPARIN SODIUM INJ 40 MG/0.4 ML DISP.SYRIN SUBCUT SCH (10:56)
[2016-10-03] MEDS: CEFEPIME 1 GM/D5W RTU 50 ML IV SCH ×2 (10:56→22:44)
[2016-10-03] MEDS: TAMSULOSIN HCL 0.4 MG CAP.SR.24H PO SCH (10:56)
[2016-10-03] MEDS: DILTIAZEM HCL 120 MG CAP.SR.24H PO SCH (10:56)
[2016-10-03] MEDS: ASPIRIN 81 MG TABLET, CHEWABLE PO SCH (10:57)
[2016-10-03] MEDS: FAMOTIDINE 20 MG TABLET PO SCH ×2 (10:57→22:30)
[2016-10-03] MEDS: CETIRIZINE 10 MG TABLET PO SCH (10:57)
[2016-10-03] MEDS: DOCUSATE SODIUM 100 MG CAPSULE PO SCH ×2 (10:57→17:31)
[2016-10-03] MEDS: FLUTICASONE/SALMETEROL DISKUS 250-50 MCG/DOSE IH SCH ×2 (10:58→22:30)
[2016-10-03] MEDS: TIOTROPIUM BROMIDE DPI 5 CAP/KIT (18 MCG/CAP) IH SCH (10:59)
[2016-10-03] MEDS: DRONEDARONE HYDROCHLORIDE 400 MG TABLET PO SCH ×2 (10:59→22:31)
[2016-10-03] MEDS: SIMVASTATIN 10 MG TABLET PO SCH (22:30)
[2016-10-04] MEDS: IPRATROPIUM/ALBUTEROL 0.5-2.5 MG/3 ML AMPUL NEB SCH ×4 (02:50→19:58)
--- NOTE | 2016-10-04 09:15 | PDOC PROGRESS REPORT ---
Subjective Progress Note for:: 10/04/16 Subjective:: Patient is doing fair to have a cough and productivity. No fever overnight no chest pain no shortness of the breath Physical Exam Vital Signs: Temp Pulse Resp BP Pulse Ox 97.5 F 77 18 103/59 L 96 10/04/16 07:04 10/04/16 07:50 10/04/16 07:50 10/04/16 07:04 10/04/16 07:50 Intake & Output 10/03/16 10/04/16 10/05/16 06:59 06:59 06:59 Intake Total 91 839 Balance 91 839 Weight 55.2 kg 55.5 kg General appearance: PRESENT: no acute distress, well-developed, well-nourished Head exam: PRESENT: atraumatic, normocephalic Eye exam: PRESENT: conjunctiva pink, EOMI, PERRLA. ABSENT: scleral icterus Ear exam: PRESENT: normal external ear exam Mouth exam: PRESENT: moist, tongue midline Neck exam: PRESENT: full ROM. ABSENT: carotid bruit, JVD, lymphadenopathy, thyromegaly Respiratory exam: PRESENT: clear to auscultation sherley Cardiovascular exam: PRESENT: RRR. ABSENT: diastolic murmur, rubs, systolic murmur Pulses: PRESENT: normal dorsalis pedis pul, +2 pedal pulses bilateral Vascular exam: PRESENT: normal capillary refill GI/Abdominal exam: PRESENT: normal bowel sounds, soft. ABSENT: distended, guarding, mass, organolmegaly, rebound, tenderness Rectal exam: PRESENT: deferred Neurological exam: PRESENT: alert, awake, oriented to person, oriented to place , oriented to time, oriented to situation, CN II-XII grossly intact. ABSENT: motor sensory deficit Psychiatric exam: PRESENT: appropriate affect, normal mood. ABSENT: homicidal ideation, suicidal ideation Skin exam: PRESENT: dry, intact, warm. ABSENT: cyanosis, rash Results Laboratory Results: 10/03/16 04:08 10/02/16 05:17 09/24/16 09/24/16 09/25/16 19:10 19:10 00:35 Creatine Kinase 57 63 CK-MB (CK-2) 1.29 Troponin I 0.078 NT-Pro-B Natriuret Pep 576 H 09/25/16 09/25/16 09/25/16 00:35 06:59 06:59 Creatine Kinase 60 CK-MB (CK-2) 1.53 1.71 Troponin I 0.040 0.019 NT-Pro-B Natriuret Pep Impressions: Chest CT 09/24/16 00:00 IMPRESSION: Significantly increased consolidation involving both lower lobes with new areas of patchy airspace disease present in the right middle and left upper lobes. Small bilateral pleural effusions are present. Head CT 09/24/16 00:00 IMPRESSION: Acute maxillary, ethmoid, and sphenoid sinusitis. CHRONIC CHANGES OF ATROPHY AND MICROVASCULAR ISCHEMIA. No acute intracranial findings. Chest X-Ray 10/02/16 00:00 IMPRESSION: Persistent left lower lobe consolidation worrisome for pneumonia. This is similar compared to chest films 09/29/2016 Assessment & Plan - Diagnosis (1) Septicemia Is this a current diagnosis for this admission?: YesPlan: All blood culture and urine cultures come back negative (2) Pneumonia Qualifiers: Pneumonia type: due to unspecified organism Laterality: left Lung location: unspecified part of lung Qualified Code(s): J18.9 - Pneumonia, unspecified organism Is this a current diagnosis for this admission?: YesPlan: Continues the current antibiotic (3) Urinary tract infection Qualifiers: Urinary tract infection type: site unspecified Hematuria presence: with hematuria Qualified Code(s): N39.0 - Urinary tract infection, site not specified Is this a current diagnosis for this admission?: YesPlan: All resolving (4) Paroxysmal atrial fibrillation Is this a current diagnosis for this admission?: YesPlan: Not a candidate for any anticoagulations (5) Respiratory failure Qualifiers: Chronicity: acute on chronic Respiratory failure complication: hypoxia and hypercapnia Qualified Code(s): J96.21 - Acute and chronic respiratory failure with hypoxia Is this a current diagnosis for this admission?: YesPlan: Currently on a BiPAP and follow with the pulmonary (6) Coronary artery disease Is this a current diagnosis for this admission?: YesPlan: Patient's cardiac enzyme is all stableNo sign of any acute [place] (7) Neurofibromatosis Is this a current diagnosis for this admission?: Yes (8) Altered mental status Qualifiers: Altered mental status type: unspecified Qualified Code(s): R41.82 - Altered mental status, unspecified Is this a current diagnosis for this admission?: Yes - Time Time Spent with patient: 15-24 minutes Medications reviewed and adjusted accordingly: Yes Anticipated discharge: SNF - Inpatient Certification Medical Necessity: Significant Comorbidiites Make Outpatient Treatment Too Risky , Need Close Monitoring Due to Risk of Patient Decompensation 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
[2016-10-04] MEDS: CETIRIZINE 10 MG TABLET PO SCH (10:37)
[2016-10-04] MEDS: DOCUSATE SODIUM 100 MG CAPSULE PO SCH ×2 (10:37→18:32)
[2016-10-04] MEDS: DILTIAZEM HCL 120 MG CAP.SR.24H PO SCH (10:38)
[2016-10-04] MEDS: FAMOTIDINE 20 MG TABLET PO SCH ×2 (10:38→22:17)
[2016-10-04] MEDS: ASPIRIN 81 MG TABLET, CHEWABLE PO SCH (10:38)
[2016-10-04] MEDS: TAMSULOSIN HCL 0.4 MG CAP.SR.24H PO SCH (10:38)
[2016-10-04] MEDS: CEFEPIME 1 GM/D5W RTU 50 ML IV SCH ×2 (10:39→22:21)
[2016-10-04] MEDS: TIOTROPIUM BROMIDE DPI 5 CAP/KIT (18 MCG/CAP) IH SCH (10:40)
[2016-10-04] MEDS: ENOXAPARIN SODIUM INJ 40 MG/0.4 ML DISP.SYRIN SUBCUT SCH (10:41)
[2016-10-04] MEDS: FLUTICASONE/SALMETEROL DISKUS 250-50 MCG/DOSE IH SCH ×2 (10:41→22:17)
[2016-10-04] MEDS: DRONEDARONE HYDROCHLORIDE 400 MG TABLET PO SCH ×2 (10:41→22:17)
[2016-10-04] MEDS ORDERED: DIPHENHYDRAMINE HCL 25 MG CAPSULE PO PRN (16:14)
[2016-10-04] MEDS ORDERED: ACETAMINOPHEN 325 MG TABLET ONE (18:28)
[2016-10-04] MEDS: SIMVASTATIN 10 MG TABLET PO SCH (22:17)
[2016-10-05] MEDS: IPRATROPIUM/ALBUTEROL 0.5-2.5 MG/3 ML AMPUL NEB SCH ×4 (02:07→19:59)
[2016-10-05] MEDS ORDERED: ACETAMINOPHEN 325 MG TABLET PO PRN (02:50)
[2016-10-05 05:11] LABS: HEMATOCRIT 29.7 % (37.9-51.0); HEMOGLOBIN 9.5 g/dL (13.5-17.0); HGB HCT DIFFERENCE -1.2; MEAN CORPUSCULAR HEMOGLOBIN 22.6 pg (27.0-33.4); MEAN CORPUSCULAR VOLUME 71 fl (80-97); RED BLOOD COUNT 4.21 10^6/uL (4.35-5.55); RED CELL DISTRIBUTION WIDTH 19.5 % (11.5-14.0); WHITE BLOOD COUNT 15.4 10^3/uL (4.0-10.5)
[2016-10-05 05:57] LABS: BASOPHILS % (MANUAL) 0 % (0-2); EOSINOPHILS % (MANUAL) 10 % (0-6); LYMPHOCYTES % (MANUAL) 3 % (13-45); TOTAL CELLS COUNTED 100
[2016-10-05 06:00] LABS: ANISOCYTOSIS 2+; TOXIC GRANULATION 1+
[2016-10-05 06:01] LABS: MICROCYTOSIS 2+; POIKILOCYTOSIS 2+; POLYCHROMASIA SLIGHT
[2016-10-05 06:02] LABS: OVALOCYTES 1+; TEAR DROP CELLS 1+
[2016-10-05] MEDS: TAMSULOSIN HCL 0.4 MG CAP.SR.24H PO SCH (10:31)
[2016-10-05] MEDS: DILTIAZEM HCL 120 MG CAP.SR.24H PO SCH (10:31)
[2016-10-05] MEDS: CETIRIZINE 10 MG TABLET PO SCH (10:31)
[2016-10-05] MEDS: ASPIRIN 81 MG TABLET, CHEWABLE PO SCH (10:31)
[2016-10-05] MEDS: DOCUSATE SODIUM 100 MG CAPSULE PO SCH ×2 (10:32→19:23)
[2016-10-05] MEDS: FAMOTIDINE 20 MG TABLET PO SCH ×2 (10:32→21:13)
[2016-10-05] MEDS: DRONEDARONE HYDROCHLORIDE 400 MG TABLET PO SCH ×2 (10:33→21:13)
[2016-10-05] MEDS: CEFEPIME 1 GM/D5W RTU 50 ML IV SCH ×2 (10:34→21:13)
[2016-10-05] MEDS: FLUTICASONE/SALMETEROL DISKUS 250-50 MCG/DOSE IH SCH ×2 (10:34→21:21)
[2016-10-05] MEDS: TIOTROPIUM BROMIDE DPI 5 CAP/KIT (18 MCG/CAP) IH SCH (10:34)
[2016-10-05] MEDS: ENOXAPARIN SODIUM INJ 40 MG/0.4 ML DISP.SYRIN SUBCUT SCH (10:35)
--- NOTE | 2016-10-05 10:41 | PDOC PROGRESS REPORT ---
Subjective Progress Note for:: 10/05/16 Subjective:: Patient is doing fair to have a cough and productivity. No fever overnight no chest pain no shortness of the breath Physical Exam Vital Signs: Temp Pulse Resp BP Pulse Ox 97.6 F 86 14 115/50 L 92 10/05/16 03:43 10/05/16 07:40 10/05/16 07:40 10/05/16 03:43 10/05/16 07:40 Intake & Output 10/04/16 10/05/16 10/06/16 06:59 06:59 06:59 Intake Total 839 715 Balance 839 715 Weight 55.5 kg 55.2 kg General appearance: PRESENT: no acute distress, well-developed, well-nourished Head exam: PRESENT: atraumatic, normocephalic Eye exam: PRESENT: conjunctiva pink, EOMI, PERRLA. ABSENT: scleral icterus Ear exam: PRESENT: normal external ear exam Mouth exam: PRESENT: moist, tongue midline Neck exam: PRESENT: full ROM. ABSENT: carotid bruit, JVD, lymphadenopathy, thyromegaly Respiratory exam: PRESENT: clear to auscultation sherley Cardiovascular exam: PRESENT: RRR. ABSENT: diastolic murmur, rubs, systolic murmur Pulses: PRESENT: normal dorsalis pedis pul, +2 pedal pulses bilateral Vascular exam: PRESENT: normal capillary refill GI/Abdominal exam: PRESENT: normal bowel sounds, soft. ABSENT: distended, guarding, mass, organolmegaly, rebound, tenderness Rectal exam: PRESENT: deferred Neurological exam: PRESENT: alert, awake, oriented to person. ABSENT: motor sensory deficit Psychiatric exam: PRESENT: appropriate affect, normal mood. ABSENT: homicidal ideation, suicidal ideation Skin exam: PRESENT: dry, intact, warm. ABSENT: cyanosis, rash Results Laboratory Results: 10/05/16 04:12 10/02/16 05:17 10/05/16 04:12 WBC 15.4 H RBC 4.21 L Hgb 9.5 L Hct 29.7 L MCV 71 L MCH 22.6 L MCHC 32.0 RDW 19.5 H Plt Count 450 Seg Neutrophils % Not Reportable Lymphocytes % Not Reportable Monocytes % Not Reportable Eosinophils % Not Reportable Basophils % Not Reportable Absolute Neutrophils Not Reportable Absolute Lymphocytes Not Reportable Absolute Monocytes Not Reportable Absolute Eosinophils Not Reportable Absolute Basophils Not Reportable 09/29/16 11:09 Blood Blood Culture - Final NO GROWTH IN 5 DAYS 09/29/16 10:00 Blood Blood Culture - Final NO GROWTH IN 5 DAYS 09/24/16 09/24/16 09/25/16 19:10 19:10 00:35 Creatine Kinase 57 63 CK-MB (CK-2) 1.29 Troponin I 0.078 NT-Pro-B Natriuret Pep 576 H 09/25/16 09/25/16 09/25/16 00:35 06:59 06:59 Creatine Kinase 60 CK-MB (CK-2) 1.53 1.71 Troponin I 0.040 0.019 NT-Pro-B Natriuret Pep Impressions: Chest CT 09/24/16 00:00 IMPRESSION: Significantly increased consolidation involving both lower lobes with new areas of patchy airspace disease present in the right middle and left upper lobes. Small bilateral pleural effusions are present. Head CT 09/24/16 00:00 IMPRESSION: Acute maxillary, ethmoid, and sphenoid sinusitis. CHRONIC CHANGES OF ATROPHY AND MICROVASCULAR ISCHEMIA. No acute intracranial findings. Chest X-Ray 10/02/16 00:00 IMPRESSION: Persistent left lower lobe consolidation worrisome for pneumonia. This is similar compared to chest films 09/29/2016 Assessment & Plan - Diagnosis (1) Septicemia Is this a current diagnosis for this admission?: YesPlan: All blood culture and urine cultures come back negative (2) Pneumonia Qualifiers: Pneumonia type: due to unspecified organism Laterality: left Lung location: unspecified part of lung Qualified Code(s): J18.9 - Pneumonia, unspecified organism Is this a current diagnosis for this admission?: YesPlan: Continues the current antibiotic (3) Urinary tract infection Qualifiers: Urinary tract infection type: site unspecified Hematuria presence: with hematuria Qualified Code(s): N39.0 - Urinary tract infection, site not specified Is this a current diagnosis for this admission?: YesPlan: All resolving (4) Paroxysmal atrial fibrillation Is this a current diagnosis for this admission?: YesPlan: Not a candidate for any anticoagulations (5) Respiratory failure Qualifiers: Chronicity: acute on chronic Respiratory failure complication: hypoxia and hypercapnia Qualified Code(s): J96.21 - Acute and chronic respiratory failure with hypoxia Is this a current diagnosis for this admission?: YesPlan: Currently on a BiPAP and follow with the pulmonary (6) Coronary artery disease Is this a current diagnosis for this admission?: YesPlan: Patient's cardiac enzyme is all stableNo sign of any acute [place] (7) Neurofibromatosis Is this a current diagnosis for this admission?: Yes (8) Altered mental status Qualifiers: Altered mental status type: unspecified Qualified Code(s): R41.82 - Altered mental status, unspecified Is this a current diagnosis for this admission?: Yes - Time Time Spent with patient: 15-24 minutes Medications reviewed and adjusted accordingly: Yes Anticipated discharge: SNF - Inpatient Certification Medical Necessity: Need for IV Antibiotics Post Hospital Care: D/C Residential Collections Documentation - Plan Summary Plan Summary: Patient's white count is slightly elevated but patient's lung sounds much better continues IV cefepime and will get the sputum cultures is no sign of any C. difficile and consult physical therapy
[2016-10-05] MEDS ORDERED: ZINC OXIDE 20% OINTMENT 28.35 GM ONE (18:17)
[2016-10-05] MEDS ORDERED: NYSTATIN CREAM 15 GM ONE (18:17)
[2016-10-05] MEDS ORDERED: NYSTATIN CREAM 15 GM TP PRN (19:32)
[2016-10-05] MEDS ORDERED: ZINC OXIDE 20% OINTMENT 28.35 GM TP PRN (19:33)
[2016-10-05] MEDS: SIMVASTATIN 10 MG TABLET PO SCH (21:14)
[2016-10-06] MEDS: IPRATROPIUM/ALBUTEROL 0.5-2.5 MG/3 ML AMPUL NEB SCH ×4 (01:55→20:31)
[2016-10-06 04:48] LABS: HEMATOCRIT 31.1 % (37.9-51.0); HEMOGLOBIN 9.8 g/dL (13.5-17.0); HGB HCT DIFFERENCE -1.7; MEAN CORPUSCULAR HEMOGLOBIN 22.6 pg (27.0-33.4); MEAN CORPUSCULAR HGB CONC 31.6 g/dL (32.0-36.0); MEAN CORPUSCULAR VOLUME 71 fl (80-97); RED BLOOD COUNT 4.35 10^6/uL (4.35-5.55); RED CELL DISTRIBUTION WIDTH 19.5 % (11.5-14.0); WHITE BLOOD COUNT 18.5 10^3/uL (4.0-10.5)
[2016-10-06 05:07] LABS: ANION GAP 8 (5-19); BLOOD UREA NITROGEN 27 mg/dL (7-20); CALCIUM 8.4 mg/dL (8.4-10.2); CARBON DIOXIDE 27 mmol/L (22-30); CHLORIDE 102 mmol/L (98-107); CREATININE RESULT 0.61 mg/dL (0.52-1.25); GLUCOSE 85 mg/dL (75-110); POTASSIUM 4.4 mmol/L (3.6-5.0); SODIUM 137.3 mmol/L (137-145)
[2016-10-06 06:04] LABS: BASOPHILS % (MANUAL) 2 % (0-2); EOSINOPHILS % (MANUAL) 10 % (0-6); LYMPHOCYTES % (MANUAL) 5 % (13-45); TOTAL CELLS COUNTED 100
[2016-10-06 06:06] LABS: TOXIC GRANULATION 1+
[2016-10-06 06:07] LABS: ANISOCYTOSIS 2+; OVALOCYTES 1+; POIKILOCYTOSIS 1+
[2016-10-06] MEDS: DOCUSATE SODIUM 100 MG CAPSULE PO SCH ×2 (10:43→17:48)
[2016-10-06] MEDS: FAMOTIDINE 20 MG TABLET PO SCH ×2 (10:43→21:38)
[2016-10-06] MEDS: TAMSULOSIN HCL 0.4 MG CAP.SR.24H PO SCH (10:43)
[2016-10-06] MEDS: ENOXAPARIN SODIUM INJ 40 MG/0.4 ML DISP.SYRIN SUBCUT SCH (10:44)
[2016-10-06] MEDS: ASPIRIN 81 MG TABLET, CHEWABLE PO SCH (10:44)
[2016-10-06] MEDS: LEVOFLOXACIN 500 MG/D5W RTU 100 ML IV SCH (10:44)
[2016-10-06] MEDS: DILTIAZEM HCL 120 MG CAP.SR.24H PO SCH (10:45)
[2016-10-06] MEDS: CETIRIZINE 10 MG TABLET PO SCH (10:45)
[2016-10-06] MEDS: CEFEPIME 1 GM/D5W RTU 50 ML IV SCH ×2 (10:46→21:37)
[2016-10-06] MEDS: TIOTROPIUM BROMIDE DPI 5 CAP/KIT (18 MCG/CAP) IH SCH (10:47)
[2016-10-06] MEDS: FLUTICASONE/SALMETEROL DISKUS 250-50 MCG/DOSE IH SCH ×2 (10:47→21:38)
[2016-10-06] MEDS: DRONEDARONE HYDROCHLORIDE 400 MG TABLET PO SCH ×2 (10:47→21:38)
--- NOTE | 2016-10-06 17:53 | PDOC PROGRESS REPORT ---
Subjective Progress Note for:: 10/06/16 Subjective:: Patient is doing fairPatient's white count is still elevatedPatients denied any chest pain denied any shortness of the breath denied any nausea vomiting. Patient still currently on IV antibiotic Physical Exam Vital Signs: Temp Pulse Resp BP Pulse Ox 98.3 F 84 16 110/58 L 96 10/06/16 12:05 10/06/16 14:00 10/06/16 13:25 10/06/16 12:05 10/06/16 13:25 Intake & Output 10/05/16 10/06/16 10/07/16 06:59 06:59 06:59 Intake Total 715 950 535 Balance 715 950 535 Weight 55.2 kg 56.1 kg General appearance: PRESENT: no acute distress, well-developed, well-nourished Head exam: PRESENT: atraumatic, normocephalic Eye exam: PRESENT: conjunctiva pink, EOMI, PERRLA. ABSENT: scleral icterus Ear exam: PRESENT: normal external ear exam Mouth exam: PRESENT: moist, tongue midline Neck exam: PRESENT: full ROM. ABSENT: carotid bruit, JVD, lymphadenopathy, thyromegaly Respiratory exam: PRESENT: clear to auscultation sherley Cardiovascular exam: PRESENT: RRR. ABSENT: diastolic murmur, rubs, systolic murmur Pulses: PRESENT: normal dorsalis pedis pul, +2 pedal pulses bilateral Vascular exam: PRESENT: normal capillary refill GI/Abdominal exam: PRESENT: normal bowel sounds, soft. ABSENT: distended, guarding, mass, organolmegaly, rebound, tenderness Rectal exam: PRESENT: deferred Neurological exam: PRESENT: alert, awake, oriented to person, oriented to place , oriented to time, oriented to situation, CN II-XII grossly intact. ABSENT: motor sensory deficit Psychiatric exam: PRESENT: appropriate affect, normal mood. ABSENT: homicidal ideation, suicidal ideation Skin exam: PRESENT: dry, intact, warm. ABSENT: cyanosis, rash Results Laboratory Results: 10/06/16 04:15 10/06/16 04:15 10/06/16 10/06/16 04:15 04:15 WBC 18.5 H RBC 4.35 Hgb 9.8 L Hct 31.1 L MCV 71 L MCH 22.6 L MCHC 31.6 L RDW 19.5 H Plt Count 453 H Seg Neutrophils % Not Reportable Lymphocytes % Not Reportable Monocytes % Not Reportable Eosinophils % Not Reportable Basophils % Not Reportable Absolute Neutrophils Not Reportable Absolute Lymphocytes Not Reportable Absolute Monocytes Not Reportable Absolute Eosinophils Not Reportable Absolute Basophils Not Reportable Sodium 137.3 Potassium 4.4 Chloride 102 Carbon Dioxide 27 Anion Gap 8 BUN 27 H Creatinine 0.61 Est GFR ( Amer) > 60 Est GFR (Non-Af Amer) > 60 Glucose 85 Calcium 8.4 09/24/16 09/24/16 09/25/16 19:10 19:10 00:35 Creatine Kinase 57 63 CK-MB (CK-2) 1.29 Troponin I 0.078 NT-Pro-B Natriuret Pep 576 H 09/25/16 09/25/16 09/25/16 00:35 06:59 06:59 Creatine Kinase 60 CK-MB (CK-2) 1.53 1.71 Troponin I 0.040 0.019 NT-Pro-B Natriuret Pep Impressions: Chest CT 09/24/16 00:00 IMPRESSION: Significantly increased consolidation involving both lower lobes with new areas of patchy airspace disease present in the right middle and left upper lobes. Small bilateral pleural effusions are present. Head CT 09/24/16 00:00 IMPRESSION: Acute maxillary, ethmoid, and sphenoid sinusitis. CHRONIC CHANGES OF ATROPHY AND MICROVASCULAR ISCHEMIA. No acute intracranial findings. Chest X-Ray 10/02/16 00:00 IMPRESSION: Persistent left lower lobe consolidation worrisome for pneumonia. This is similar compared to chest films 09/29/2016 Assessment & Plan - Diagnosis (1) Septicemia Is this a current diagnosis for this admission?: YesPlan: All blood culture and urine cultures come back negative (2) Pneumonia Qualifiers: Pneumonia type: due to unspecified organism Laterality: left Lung location: unspecified part of lung Qualified Code(s): J18.9 - Pneumonia, unspecified organism Is this a current diagnosis for this admission?: YesPlan: Continues the current antibiotic (3) Urinary tract infection Qualifiers: Urinary tract infection type: site unspecified Hematuria presence: with hematuria Qualified Code(s): N39.0 - Urinary tract infection, site not specified Is this a current diagnosis for this admission?: YesPlan: All resolving (4) Paroxysmal atrial fibrillation Is this a current diagnosis for this admission?: YesPlan: Not a candidate for any anticoagulations (5) Respiratory failure Qualifiers: Chronicity: acute on chronic Respiratory failure complication: hypoxia and hypercapnia Qualified Code(s): J96.21 - Acute and chronic respiratory failure with hypoxia Is this a current diagnosis for this admission?: YesPlan: Currently on a BiPAP and follow with the pulmonary (6) Coronary artery disease Is this a current diagnosis for this admission?: YesPlan: Patient's cardiac enzyme is all stableNo sign of any acute NE (7) Neurofibromatosis Is this a current diagnosis for this admission?: YesPlan: We will get the flow cytometry because of the persistent elevated white count (8) Altered mental status Qualifiers: Altered mental status type: unspecified Qualified Code(s): R41.82 - Altered mental status, unspecified Is this a current diagnosis for this admission?: Yes - Time Time Spent with patient: 15-24 minutes Medications reviewed and adjusted accordingly: Yes Anticipated discharge: SNF Within: Other - Inpatient Certification Medical Necessity: Need Close Monitoring Due to Risk of Patient Decompensation, Need for IV Antibiotics 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
[2016-10-06] MEDS: SIMVASTATIN 10 MG TABLET PO SCH (21:38)
[2016-10-07] MEDS: IPRATROPIUM/ALBUTEROL 0.5-2.5 MG/3 ML AMPUL NEB SCH ×4 (01:00→19:45)
[2016-10-07 05:17] LABS: HEMATOCRIT 30.7 % (37.9-51.0); HEMOGLOBIN 9.8 g/dL (13.5-17.0); HGB HCT DIFFERENCE -1.3; MEAN CORPUSCULAR HEMOGLOBIN 22.7 pg (27.0-33.4); MEAN CORPUSCULAR VOLUME 71 fl (80-97); RED BLOOD COUNT 4.33 10^6/uL (4.35-5.55); RED CELL DISTRIBUTION WIDTH 18.9 % (11.5-14.0); WHITE BLOOD COUNT 16.3 10^3/uL (4.0-10.5)
[2016-10-07 05:24] LABS: ANION GAP 10 (5-19); BLOOD UREA NITROGEN 24 mg/dL (7-20); CALCIUM 8.3 mg/dL (8.4-10.2); CARBON DIOXIDE 26 mmol/L (22-30); CHLORIDE 102 mmol/L (98-107); CREATININE RESULT 0.61 mg/dL (0.52-1.25); GLUCOSE 77 mg/dL (75-110); POTASSIUM 4.5 mmol/L (3.6-5.0); SODIUM 137.8 mmol/L (137-145)
[2016-10-07 05:41] LABS: BASOPHILS % (MANUAL) 0 % (0-2); EOSINOPHILS % (MANUAL) 7 % (0-6); LYMPHOCYTES % (MANUAL) 3 % (13-45); TOTAL CELLS COUNTED 100
[2016-10-07 05:43] LABS: ANISOCYTOSIS 2+; OVALOCYTES SLIGHT; POIKILOCYTOSIS 1+; SCHISTOCYTES SLIGHT; TARGET CELLS SLIGHT
--- NOTE | 2016-10-07 13:37 | PDOC PROGRESS REPORT ---
Subjective Progress Note for:: 10/07/16 Subjective:: Patient is doing fairPatient is still complaining of a cough and a CT scan of the chest was ordered today and results are still pneumonia and possible overload fluid patient is not taking any IV fluid right now. Patient's currently denied any chest pain denied any shortness of the breath patient's white count is still elevated. Physical Exam Vital Signs: Temp Pulse Resp BP Pulse Ox 97.6 F 78 14 111/61 85 L 10/07/16 11:10 10/07/16 13:15 10/07/16 13:15 10/07/16 11:10 10/07/16 13:15 Intake & Output 10/06/16 10/07/16 10/08/16 06:59 06:59 06:59 Intake Total 950 815 Balance 950 815 Weight 56.1 kg 53.8 kg General appearance: PRESENT: no acute distress, well-developed, well-nourished Head exam: PRESENT: atraumatic, normocephalic Eye exam: PRESENT: conjunctiva pink, EOMI, PERRLA. ABSENT: scleral icterus Ear exam: PRESENT: normal external ear exam Mouth exam: PRESENT: moist, tongue midline Neck exam: PRESENT: full ROM. ABSENT: carotid bruit, JVD, lymphadenopathy, thyromegaly Respiratory exam: PRESENT: decreased breath sounds Cardiovascular exam: PRESENT: RRR. ABSENT: diastolic murmur, rubs, systolic murmur Pulses: PRESENT: normal dorsalis pedis pul, +2 pedal pulses bilateral Vascular exam: PRESENT: normal capillary refill GI/Abdominal exam: PRESENT: normal bowel sounds, soft. ABSENT: distended, guarding, mass, organolmegaly, rebound, tenderness Rectal exam: PRESENT: deferred Neurological exam: PRESENT: alert, awake, oriented to person, CN II-XII grossly intact. ABSENT: motor sensory deficit Additional comments: Patients might sometimes on and off confused Psychiatric exam: PRESENT: appropriate affect, normal mood. ABSENT: homicidal ideation, suicidal ideation Skin exam: PRESENT: dry, intact, warm. ABSENT: cyanosis, rash Results Laboratory Results: 10/07/16 04:30 10/07/16 04:30 10/07/16 10/07/16 04:30 04:30 WBC 16.3 H RBC 4.33 L Hgb 9.8 L Hct 30.7 L MCV 71 L MCH 22.7 L MCHC 32.0 RDW 18.9 H Plt Count 442 Seg Neutrophils % Not Reportable Lymphocytes % Not Reportable Monocytes % Not Reportable Eosinophils % Not Reportable Basophils % Not Reportable Absolute Neutrophils Not Reportable Absolute Lymphocytes Not Reportable Absolute Monocytes Not Reportable Absolute Eosinophils Not Reportable Absolute Basophils Not Reportable Sodium 137.8 Potassium 4.5 Chloride 102 Carbon Dioxide 26 Anion Gap 10 BUN 24 H Creatinine 0.61 Est GFR ( Amer) > 60 Est GFR (Non-Af Amer) > 60 Glucose 77 Calcium 8.3 L 09/24/16 09/24/16 09/25/16 19:10 19:10 00:35 Creatine Kinase 57 63 CK-MB (CK-2) 1.29 Troponin I 0.078 NT-Pro-B Natriuret Pep 576 H 09/25/16 09/25/16 09/25/16 00:35 06:59 06:59 Creatine Kinase 60 CK-MB (CK-2) 1.53 1.71 Troponin I 0.040 0.019 NT-Pro-B Natriuret Pep Impressions: Head CT 09/24/16 00:00 IMPRESSION: Acute maxillary, ethmoid, and sphenoid sinusitis. CHRONIC CHANGES OF ATROPHY AND MICROVASCULAR ISCHEMIA. No acute intracranial findings. Chest X-Ray 10/02/16 00:00 IMPRESSION: Persistent left lower lobe consolidation worrisome for pneumonia. This is similar compared to chest films 09/29/[address] 10/07/16 00:00 IMPRESSION: Partial clearing of the dense consolidation left lower lobe compared to 09/14/2016 Findings worrisome for fluid overload or congestive failure with trace pleural effusions Dependent atelectasis in the bilateral upper lobes and right lower lobe. Assessment & Plan - Diagnosis (1) Septicemia Is this a current diagnosis for this admission?: YesPlan: All blood culture and urine cultures come back negative (2) Pneumonia Qualifiers: Pneumonia type: due to unspecified organism Laterality: left Lung location: unspecified part of lung Qualified Code(s): J18.9 - Pneumonia, unspecified organism Is this a current diagnosis for this admission?: YesPlan: Continues to IV antibiotic I think patient still need a more antibiotic (3) Urinary tract infection Qualifiers: Urinary tract infection type: site unspecified Hematuria presence: with hematuria Qualified Code(s): N39.0 - Urinary tract infection, site not specified Is this a current diagnosis for this admission?: YesPlan: All resolved (4) Paroxysmal atrial fibrillation Is this a current diagnosis for this admission?: YesPlan: Currently stable (5) Respiratory failure Qualifiers: Chronicity: acute on chronic Respiratory failure complication: hypoxia and hypercapnia Qualified Code(s): J96.21 - Acute and chronic respiratory failure with hypoxia Is this a current diagnosis for this admission?: YesPlan: All resolved (6) Coronary artery disease Is this a current diagnosis for this admission?: YesPlan: Stable will get the patient's on the Lasix 20 mg for the next 3 days (7) Neurofibromatosis Is this a current diagnosis for this admission?: Yes (8) Altered mental status Qualifiers: Altered mental status type: unspecified Qualified Code(s): R41.82 - Altered mental status, unspecified Is this a current diagnosis for this admission?: Yes - Time Time Spent with patient: 15-24 minutes Medications reviewed and adjusted accordingly: Yes Anticipated discharge: SNF - Inpatient Certification Medical Necessity: Need Close Monitoring Due to Risk of Patient Decompensation, Need for IV Antibiotics Post Hospital Care: D/C Printing Supervisor Documentation - Plan Summary Plan Summary: Continues to IV antibiotic given p.o. Lasix for the next 3 days
[2016-10-07] MEDS: ENOXAPARIN SODIUM INJ 40 MG/0.4 ML DISP.SYRIN SUBCUT SCH (13:56)
[2016-10-07] MEDS: DILTIAZEM HCL 120 MG CAP.SR.24H PO SCH (13:56)
[2016-10-07] MEDS: ASPIRIN 81 MG TABLET, CHEWABLE PO SCH (13:58)
[2016-10-07] MEDS: DOCUSATE SODIUM 100 MG CAPSULE PO SCH ×2 (13:58→19:20)
[2016-10-07] MEDS: CETIRIZINE 10 MG TABLET PO SCH (13:58)
[2016-10-07] MEDS: TAMSULOSIN HCL 0.4 MG CAP.SR.24H PO SCH (13:58)
[2016-10-07] MEDS: FAMOTIDINE 20 MG TABLET PO SCH ×2 (13:58→21:34)
[2016-10-07] MEDS: CEFEPIME 1 GM/D5W RTU 50 ML IV SCH ×2 (13:59→21:39)
[2016-10-07] MEDS: LEVOFLOXACIN 500 MG/D5W RTU 100 ML IV SCH (14:00)
[2016-10-07] MEDS: FLUTICASONE/SALMETEROL DISKUS 250-50 MCG/DOSE IH SCH ×2 (14:02→21:34)
[2016-10-07] MEDS: DRONEDARONE HYDROCHLORIDE 400 MG TABLET PO SCH ×2 (14:02→21:34)
[2016-10-07] MEDS: TIOTROPIUM BROMIDE DPI 5 CAP/KIT (18 MCG/CAP) IH SCH (14:03)
[2016-10-07] MEDS ORDERED: FUROSEMIDE INJ/PF 20 MG/2 ML SDV IV ONE (14:30)
[2016-10-07] MEDS: SIMVASTATIN 10 MG TABLET PO SCH (21:35)
[2016-10-08] MEDS: IPRATROPIUM/ALBUTEROL 0.5-2.5 MG/3 ML AMPUL NEB SCH ×4 (02:20→19:50)
[2016-10-08 05:09] LABS: ANION GAP 9 (5-19); BLOOD UREA NITROGEN 22 mg/dL (7-20); CALCIUM 8.8 mg/dL (8.4-10.2); CARBON DIOXIDE 28 mmol/L (22-30); CHLORIDE 101 mmol/L (98-107); CREATININE RESULT 0.67 mg/dL (0.52-1.25); GLUCOSE 81 mg/dL (75-110); POTASSIUM 4.4 mmol/L (3.6-5.0); SODIUM 137.8 mmol/L (137-145)
[2016-10-08 05:15] LABS: HEMATOCRIT 31.7 % (37.9-51.0); HGB HCT DIFFERENCE -1.7; MEAN CORPUSCULAR HEMOGLOBIN 22.7 pg (27.0-33.4); MEAN CORPUSCULAR HGB CONC 31.6 g/dL (32.0-36.0); MEAN CORPUSCULAR VOLUME 72 fl (80-97); RED BLOOD COUNT 4.42 10^6/uL (4.35-5.55); RED CELL DISTRIBUTION WIDTH 19.7 % (11.5-14.0); WHITE BLOOD COUNT 15.7 10^3/uL (4.0-10.5)
[2016-10-08 05:33] LABS: BAND NEUTROPHILS % (MANUAL) 1 % (3-5); BASOPHILS % (MANUAL) 0 % (0-2); EOSINOPHILS % (MANUAL) 5 % (0-6); LYMPHOCYTES % (MANUAL) 5 % (13-45); TOTAL CELLS COUNTED 100
[2016-10-08 05:34] LABS: ANISOCYTOSIS 2+; HYPOCHROMASIA SLIGHT; OVALOCYTES SLIGHT; POIKILOCYTOSIS SLIGHT; POLYCHROMASIA SLIGHT; SCHISTOCYTES SLIGHT; TOXIC GRANULATION SLIGHT; TOXIC VACUOLATION PRESENT
--- NOTE | 2016-10-08 09:09 | PDOC PROGRESS REPORT ---
Subjective Progress Note for:: 10/08/16 Subjective:: pt is doing fair no fever nocp no sob Physical Exam Vital Signs: Temp Pulse Resp BP Pulse Ox 97.7 F 71 16 116/64 93 10/08/16 07:17 10/08/16 07:42 10/08/16 07:42 10/08/16 07:17 10/08/16 07:42 Intake & Output 10/07/16 10/08/16 10/09/16 06:59 06:59 06:59 Intake Total 815 1558 Balance 815 1558 Weight 53.8 kg 53.7 kg General appearance: PRESENT: no acute distress, well-developed, well-nourished Head exam: PRESENT: atraumatic, normocephalic Eye exam: PRESENT: conjunctiva pink, EOMI, PERRLA. ABSENT: scleral icterus Ear exam: PRESENT: normal external ear exam Mouth exam: PRESENT: moist, tongue midline Neck exam: PRESENT: full ROM. ABSENT: carotid bruit, JVD, lymphadenopathy, thyromegaly Respiratory exam: PRESENT: clear to auscultation sherley Cardiovascular exam: PRESENT: RRR. ABSENT: diastolic murmur, rubs, systolic murmur Pulses: PRESENT: normal dorsalis pedis pul, +2 pedal pulses bilateral Vascular exam: PRESENT: normal capillary refill GI/Abdominal exam: PRESENT: normal bowel sounds, soft. ABSENT: distended, guarding, mass, organolmegaly, rebound, tenderness Rectal exam: PRESENT: deferred Neurological exam: PRESENT: alert, awake, oriented to person, oriented to place , oriented to time, oriented to situation, CN II-XII grossly intact. ABSENT: motor sensory deficit Psychiatric exam: PRESENT: appropriate affect, normal mood. ABSENT: homicidal ideation, suicidal ideation Skin exam: PRESENT: dry, intact, warm. ABSENT: cyanosis, rash Results Laboratory Results: 10/08/16 04:19 10/08/16 04:19 10/08/16 10/08/16 04:19 04:19 WBC 15.7 H RBC 4.42 Hgb 10.0 L Hct 31.7 L MCV 72 L MCH 22.7 L MCHC 31.6 L RDW 19.7 H Plt Count 448 Seg Neutrophils % Not Reportable Lymphocytes % Not Reportable Monocytes % Not Reportable Eosinophils % Not Reportable Basophils % Not Reportable Absolute Neutrophils Not Reportable Absolute Lymphocytes Not Reportable Absolute Monocytes Not Reportable Absolute Eosinophils Not Reportable Absolute Basophils Not Reportable Sodium 137.8 Potassium 4.4 Chloride 101 Carbon Dioxide 28 Anion Gap 9 BUN 22 H Creatinine 0.67 Est GFR ( Amer) > 60 Est GFR (Non-Af Amer) > 60 Glucose 81 Calcium 8.8 09/24/16 09/24/16 09/25/16 19:10 19:10 00:35 Creatine Kinase 57 63 CK-MB (CK-2) 1.29 Troponin I 0.078 NT-Pro-B Natriuret Pep 576 H 09/25/16 09/25/16 09/25/16 00:35 06:59 06:59 Creatine Kinase 60 CK-MB (CK-2) 1.53 1.71 Troponin I 0.040 0.019 NT-Pro-B Natriuret Pep Impressions: Head CT 09/24/16 00:00 IMPRESSION: Acute maxillary, ethmoid, and sphenoid sinusitis. CHRONIC CHANGES OF ATROPHY AND MICROVASCULAR ISCHEMIA. No acute intracranial findings. Chest X-Ray 10/02/16 00:00 IMPRESSION: Persistent left lower lobe consolidation worrisome for pneumonia. This is similar compared to chest films 09/29/[address] 10/07/16 00:00 IMPRESSION: Partial clearing of the dense consolidation left lower lobe compared to 09/14/2016 Findings worrisome for fluid overload or congestive failure with trace pleural effusions Dependent atelectasis in the bilateral upper lobes and right lower lobe. Assessment & Plan - Diagnosis (1) Septicemia Is this a current diagnosis for this admission?: YesPlan: All blood culture and urine cultures come back negative (2) Pneumonia Qualifiers: Pneumonia type: due to unspecified organism Laterality: left Lung location: unspecified part of lung Qualified Code(s): J18.9 - Pneumonia, unspecified organism Is this a current diagnosis for this admission?: YesPlan: Continues to IV antibiotic I think patient still need a more antibiotic (3) Urinary tract infection Qualifiers: Urinary tract infection type: site unspecified Hematuria presence: with hematuria Qualified Code(s): N39.0 - Urinary tract infection, site not specified Is this a current diagnosis for this admission?: YesPlan: All resolved (4) Paroxysmal atrial fibrillation Is this a current diagnosis for this admission?: YesPlan: Currently stable (5) Respiratory failure Qualifiers: Chronicity: acute on chronic Respiratory failure complication: hypoxia and hypercapnia Qualified Code(s): J96.21 - Acute and chronic respiratory failure with hypoxia Is this a current diagnosis for this admission?: YesPlan: All resolved (6) Coronary artery disease Is this a current diagnosis for this admission?: YesPlan: Stable will get the patient's on the Lasix 20 mg for the next 3 days (7) Neurofibromatosis Is this a current diagnosis for this admission?: YesPlan: We will get the flow cytometry because of the persistent elevated white count (8) Altered mental status Qualifiers: Altered mental status type: unspecified Qualified Code(s): R41.82 - Altered mental status, unspecified Is this a current diagnosis for this admission?: Yes - Time Time Spent with patient: 15-24 minutes Medications reviewed and adjusted accordingly: Yes Anticipated discharge: SNF - Inpatient Certification Medical Necessity: Need Close Monitoring Due to Risk of Patient Decompensation, Need for IV Antibiotics Post Hospital Care: D/C Authorization Manager Documentation - Plan Summary Plan Summary: cont curr med
[2016-10-08] MEDS: ASPIRIN 81 MG TABLET, CHEWABLE PO SCH (09:56)
[2016-10-08] MEDS: DRONEDARONE HYDROCHLORIDE 400 MG TABLET PO SCH ×2 (09:56→21:47)
[2016-10-08] MEDS: FAMOTIDINE 20 MG TABLET PO SCH ×2 (09:57→21:47)
[2016-10-08] MEDS: LEVOFLOXACIN 500 MG/D5W RTU 100 ML IV SCH (09:57)
[2016-10-08] MEDS: TAMSULOSIN HCL 0.4 MG CAP.SR.24H PO SCH (09:57)
[2016-10-08] MEDS: FUROSEMIDE INJ/PF 20 MG/2 ML SDV IV SCH (09:57)
[2016-10-08] MEDS: ENOXAPARIN SODIUM INJ 40 MG/0.4 ML DISP.SYRIN SUBCUT SCH (09:57)
[2016-10-08] MEDS: DILTIAZEM HCL 120 MG CAP.SR.24H PO SCH (09:57)
[2016-10-08] MEDS: CETIRIZINE 10 MG TABLET PO SCH (09:57)
[2016-10-08] MEDS: DOCUSATE SODIUM 100 MG CAPSULE PO SCH ×2 (09:57→17:59)
[2016-10-08] MEDS: CEFEPIME 1 GM/D5W RTU 50 ML IV SCH ×2 (09:58→21:47)
[2016-10-08] MEDS: TIOTROPIUM BROMIDE DPI 5 CAP/KIT (18 MCG/CAP) IH SCH (09:58)
[2016-10-08] MEDS: FLUTICASONE/SALMETEROL DISKUS 250-50 MCG/DOSE IH SCH ×2 (09:58→21:46)
[2016-10-08] MEDS: SIMVASTATIN 10 MG TABLET PO SCH (21:47)
[2016-10-09] MEDS: IPRATROPIUM/ALBUTEROL 0.5-2.5 MG/3 ML AMPUL NEB SCH ×3 (02:29→13:57)
--- NOTE | 2016-10-09 08:18 | PDOC TRANSFER SUMMARY ---
General - Admit/Disc Date/PCP Admission Date/Primary Care Provider: 09/24/16 17:15 JÚNIOR CARRENO MD Discharge Date: 10/09/16 - Discharge Diagnosis (1) Septicemia Is this a current diagnosis for this admission?: YesSummary: Resolving (2) Pneumonia Is this a current diagnosis for this admission?: YesSummary: Continues po antibiotic (3) Urinary tract infection Is this a current diagnosis for this admission?: YesSummary: Resolved (4) Paroxysmal atrial fibrillation Is this a current diagnosis for this admission?: YesSummary: Continues on aspirin not a candidate for anticoagulations as per cardiology evaluations continues on a Cardizem and malteq (5) Respiratory failure Is this a current diagnosis for this admission?: YesSummary: All resolving (6) Coronary artery disease Is this a current diagnosis for this admission?: YesSummary: Stable (7) Neurofibromatosis Is this a current diagnosis for this admission?: YesSummary: Stable (8) Altered mental status Is this a current diagnosis for this admission?: YesSummary: Resolving - Additional Information Resuscitation Status: Full Code Discharge Diet: Cardiac Discharge Activity: Activity As Tolerated Home Medications: Acetaminophen [Tylenol Extra Strength 500 mg Tablet] 1 tab PO Q6HP PRN 09/25/16 Aspirin [Adult Low Dose Aspirin EC] 81 mg PO DAILY 09/25/16 Cetirizine HCl [Zyrtec 10 mg Tablet] 1 tab PO QPM 09/25/16 Cholecalciferol (Vitamin D3) [Vitamin D3 1000 Unit Tablet] 1,000 unit PO DAILY 09/25/16 Diltiazem HCl [Cardizem Cd 120 mg Capsule] 1 cap.sr PO DAILY 09/25/16 Fluticasone/Salmeterol [Advair 250-50 Diskus 28 dose] 1 inh IH BID 09/25/16 Guaifenesin [Robitussin Syrup 200 mg/10 ml Ud Cup] 200 mg PO Q4HP PRN 09/25/16 Ipratropium/Albuterol Sulfate [Duoneb 3 ml Ampul] 3 ml NEB RTQ4HP PRN 09/25/16 Loperamide HCl [Loperamide] 2 mg PO PRN PRN 09/25/16 Magnesium Hydroxide [Milk of Magnesia 30 ml Udcup] 30 ml PO DAILYP PRN 09/25/16 Simvastatin [Zocor 20 mg Tablet] 20 mg PO QHS 09/25/16 Tamsulosin HCl [Flomax 0.4 mg Cap.sr] 0.4 mg PO QAM 09/25/16 Tiotropium Ina [Spiriva Respimat] 4 gm IH DAILY 09/25/16 Acetaminophen [Tylenol 325 mg Tablet] 650 mg PO Q8HP PRN #0 tablet 10/09/16 Aspirin [Aspirin 81 mg Chewable Tablet] 81 mg PO DAILY #0 tab.chew 10/09/16 Diphenhydramine HCl [Benadryl 25 mg Capsule] 25 mg PO Q8HP PRN #0 capsule Docusate Sodium [Colace 100 mg Capsule] 100 mg PO BID #0 capsule 10/09/16 Dronedarone Hydrochloride [Multaq 400 mg Tablet] 400 mg PO Q12 #0 tablet Fluticasone/Salmeterol [Advair 250-50 Diskus 14 Dose/Diskus] 1 inh IH Q12 #0 inhaler 10/09/16 Ipratropium/Albuterol Sulfate [Duoneb 3 ml Ampul] 3 ml NEB RTQ6 #0 vial.neb 09/26 Nystatin [Mycostatin Cream 15 gm] 1 applic TP BIDP PRN #0 tube 10/09/16 Simvastatin [Zocor 10 mg Tablet] 20 mg PO QHS #0 tablet 10/09/16 Sulfamethoxazole/Trimethoprim [Bactrim Ds Tablet] 1 each PO BID #14 tablet 10/09 Tamsulosin HCl [Flomax 0.4 mg Cap.sr] 0.4 mg PO DAILY #0 cap.sr.24h 10/09/16 Tiotropium Ina [Spiriva Handihaler 5 Cap/Kit (18 Mcg/Cap)] 1 cap IH DAILY # 0 kit 10/09/16 Zinc Oxide [Zinc Oxide 20% Ointment 28.35 gm] 1 applic TP BIDP PRN #0 tube 10/09 History of Present Illness Admission Date/PCP: 09/24/16 17:15 JÚNIOR CARRENO MD History of Present Illness: BENNY POWELL is a 86 year old male This is a 86-year-old male with a significant history of neurofibromatosis chronic COPD and chronic smoker chronic A. fib and congestive heart failure and coronary disease. the patient's found in the prone position and altered mental status in the ER patient's white count was 30,000 and patient's have a urinary tract infection and pneumonia respiratory distress patient's in the IMCU for further evaluation and treatment. See the patient's complaining some cough and congestions since last several days and no fever. Expressed to be a DO NOT RESUSCITATE DO NOT INTUBATE Hospital Course Hospital Course: This is a 86-year-old male with a significant medical problem came to the emergency department with a complaint of shortness of the breath altered mental status and a hypertensions and the patient was diagnosed with the respiratory failure urinary tract infections and septicemia and patient was admitting in the hospital in ICU patient's is possibly well with the BiPAP and IV antibiotic and the Dr. montalvo in the pulmonary was consulted. Patient was transferred to the IMCU and the patient's remained stable patient's white count was still elevated but patient's remained afebrile and patient CT scan is also getting better. At this point patient was IV antibiotic switch to by mouth and patient was transported to the nursing facilities to the assisted living due to the close monitor and physical therapy and followed precautions also. Patient's expressive initially this and no cord but not sure because of the patient's mental status. Patient's at this point so will follow as outpatient with the leukocytosis and the flow cytometry still pending. Patient is repeat the CBC and Chem-7 in 1 week and repeat the chest x-ray in one week Physical Exam Vital Signs: Temp Pulse Resp BP Pulse Ox 97.9 F 86 18 109/60 92 10/09/16 03:54 10/09/16 08:11 10/09/16 08:11 10/09/16 03:54 10/09/16 08:11 Intake & Output 10/08/16 10/09/16 10/10/16 06:59 06:59 06:59 Intake Total 1558 839 Balance 1558 839 Weight 53.7 kg 52.9 kg General appearance: PRESENT: no acute distress, well-developed, well-nourished Head exam: PRESENT: atraumatic, normocephalic Eye exam: PRESENT: conjunctiva pink, EOMI, PERRLA. ABSENT: scleral icterus Ear exam: PRESENT: normal external ear exam Mouth exam: PRESENT: moist, tongue midline Neck exam: ABSENT: carotid bruit, JVD, lymphadenopathy, thyromegaly Respiratory exam: PRESENT: clear to auscultation sherley. ABSENT: rales, rhonchi, wheezes Cardiovascular exam: PRESENT: RRR. ABSENT: diastolic murmur, rubs, systolic murmur Pulses: PRESENT: normal dorsalis pedis pul Vascular exam: PRESENT: normal capillary refill GI/Abdominal exam: PRESENT: normal bowel sounds, soft. ABSENT: distended, guarding, mass, organolmegaly, rebound, tenderness Rectal exam: PRESENT: deferred Extremities exam: PRESENT: full ROM. ABSENT: calf tenderness, clubbing, pedal edema Neurological exam: PRESENT: alert, awake, oriented to person, oriented to place , oriented to time, oriented to situation, CN II-XII grossly intact. ABSENT: motor sensory deficit Psychiatric exam: PRESENT: appropriate affect, normal mood. ABSENT: homicidal ideation, suicidal ideation Skin exam: PRESENT: dry, intact, warm. ABSENT: cyanosis, rash Results Laboratory Results: 10/08/16 04:19 10/08/16 04:19 09/24/16 09/24/16 09/25/16 19:10 19:10 00:35 Creatine Kinase 57 63 CK-MB (CK-2) 1.29 Troponin I 0.078 NT-Pro-B Natriuret Pep 576 H 09/25/16 09/25/16 09/25/16 00:35 06:59 06:59 Creatine Kinase 60 CK-MB (CK-2) 1.53 1.71 Troponin I 0.040 0.019 NT-Pro-B Natriuret Pep Impressions: Head CT 09/24/16 00:00 IMPRESSION: Acute maxillary, ethmoid, and sphenoid sinusitis. CHRONIC CHANGES OF ATROPHY AND MICROVASCULAR ISCHEMIA. No acute intracranial findings. Chest X-Ray 10/02/16 00:00 IMPRESSION: Persistent left lower lobe consolidation worrisome for pneumonia. This is similar compared to chest films 09/29/[address] 10/07/16 00:00 IMPRESSION: Partial clearing of the dense consolidation left lower lobe compared to 09/14/2016 Findings worrisome for fluid overload or congestive failure with trace pleural effusions Dependent atelectasis in the bilateral upper lobes and right lower lobe. Transfer Plan - Disposition Transfer Plan: Patient's need a CBC and Chem-7 in 1 week the chest x-ray in one week. Patient in a nebulizer treatment as prescribed and fall precaution - Time Spent with Patient Time spent with patient: Greater than 30 Minutes Plan Time Spent: Greater than 30 Minutes - Patient's discharge to the nursing facility and I think the evaluate the patient's CODE STATUS and that patient does not have a no family member and will contact with the [facility] and will discussed with the patient still
[2016-10-09] MEDS: FLUTICASONE/SALMETEROL DISKUS 250-50 MCG/DOSE IH SCH (09:50)
[2016-10-09] MEDS: TIOTROPIUM BROMIDE DPI 5 CAP/KIT (18 MCG/CAP) IH SCH (09:50)
[2016-10-09] MEDS: CETIRIZINE 10 MG TABLET PO SCH (09:51)
[2016-10-09] MEDS: FAMOTIDINE 20 MG TABLET PO SCH (09:51)
[2016-10-09] MEDS: ASPIRIN 81 MG TABLET, CHEWABLE PO SCH (09:51)
[2016-10-09] MEDS: DILTIAZEM HCL 120 MG CAP.SR.24H PO SCH (09:51)
[2016-10-09] MEDS: ENOXAPARIN SODIUM INJ 40 MG/0.4 ML DISP.SYRIN SUBCUT SCH (09:51)
[2016-10-09] MEDS: FUROSEMIDE INJ/PF 20 MG/2 ML SDV IV SCH (09:51)
[2016-10-09] MEDS: TAMSULOSIN HCL 0.4 MG CAP.SR.24H PO SCH (09:51)
[2016-10-09] MEDS: DOCUSATE SODIUM 100 MG CAPSULE PO SCH (09:51)
[2016-10-09] MEDS: DRONEDARONE HYDROCHLORIDE 400 MG TABLET PO SCH (09:51)
[2016-10-09] MEDS: LEVOFLOXACIN 500 MG/D5W RTU 100 ML IV SCH (09:52)
[2016-10-09] MEDS: CEFEPIME 1 GM/D5W RTU 50 ML IV SCH (09:53)
[2016-10-09 12:22] VITALS: BP 113/60
[2016-10-10] MEDS ORDERED: LEVOFLOXACIN 500 MG TABLET PO SCH (10:00)
== END 2016-10-09 16:22 | DRG 871 ==
LOC: ER 14:19 → EH 17:15 → UNDOADMIN 17:20 → ICU 23:25 → 3N 09-25 23:00
PROVIDERS: ADMIT Family Medicine; ATTEND Family Medicine
PROC: 5A09557 Assistance with Respiratory Ventilation, Greater than 96 Consecutive Hours, Continuous Positive Airway Pressure (ICD-10-PCS; principal; 2016-09-24)
DX: A41.89 Other specified sepsis (principal); J18.9 Pneumonia, unspecified organism; J96.21 Acute and chronic respiratory failure with hypoxia; J96.22 Acute and chronic respiratory failure with hypercapnia; N39.0 Urinary tract infection, site not specified; R65.20 Severe sepsis without septic shock; I48.0 Paroxysmal atrial fibrillation; I25.10 Atherosclerotic heart disease of native coronary artery without angina pectoris; Q85.00 Neurofibromatosis, unspecified; J44.9 Chronic obstructive pulmonary disease, unspecified; F17.210 Nicotine dependence, cigarettes, uncomplicated; I50.9 Heart failure, unspecified; Z66 Do not resuscitate; I25.2 Old myocardial infarction; E78.5 Hyperlipidemia, unspecified; Z79.82 Long term (current) use of aspirin; K21.9 Gastro-esophageal reflux disease without esophagitis; F32.9 Major depressive disorder, single episode, unspecified; F03.90 Unspecified dementia, unspecified severity, without behavioral disturbance, psychotic disturbance, mood disturbance, and anxiety; Z79.899 Other long term (current) drug therapy; Z90.49 Acquired absence of other specified parts of digestive tract; R31.9 Hematuria, unspecified; B96.20 Unspecified Escherichia coli [E. coli] as the cause of diseases classified elsewhere; R41.82 Altered mental status, unspecified; Z78.1 Physical restraint status; E11.9 Type 2 diabetes mellitus without complications; R32 Unspecified urinary incontinence
CPT/HCPCS: 36415; 36600; 51701; 70450; 71010; 71020; 71250; 80048; 80053; 80202; 81001; 82550; 82553; 82565; 82803; 83605; 83880; 84484; 85025; 85027; 85610; 87040; 87077; 87086; 87088; 87186; 87804; 88184; 88185; 93005; 93010; 94660; 96365; 96375; 99285; G8978-GP; G8979-GP; J0692; J0696; J1650; J1940; J1956; J3370; J3490; J7030; J7060; J7620

== ENCOUNTER → 2016-12-25 | Outpatient (CLI) | payer MEDICARE, BC, OTHER ==
[2016-12-25 13:45] LABS: ALBUMIN 2.4 g/dL (3.5-5.0); ALKALINE PHOSPHATASE 55 U/L (38-126); ASPARTATE AMINO TRANSFERASE 29 U/L (17-59)
[2016-12-25 13:46] LABS: ALANINE AMINOTRANSFERASE 31 U/L (21-72); BILIRUBIN,DIRECT 0.3 mg/dL (0.0-0.4); BILIRUBIN,TOTAL 0.4 mg/dL (0.2-1.3); CHOLESTEROL 97.94 mg/dL (0-200); DIRECT LDL 45 mg/dL (<100); Direct HDL 31 mg/dL (>40); TOTAL PROTEIN 5.8 g/dL (6.3-8.2); TRIGLYCERIDES 60 mg/dL (<150)
== END ==
LOC: PNR 11:20
PROVIDERS: ATTEND Family Medicine
DX: E78.5 Hyperlipidemia, unspecified (principal); A41.9 Sepsis, unspecified organism; Q85.00 Neurofibromatosis, unspecified; I10 Essential (primary) hypertension
CPT/HCPCS: 80061; 80076

== ENCOUNTER 2017-01-24 21:36 | Emergency (ER) | payer MEDICARE, BC ==
[2017-01-24] MEDS ORDERED: NYSTATIN CREAM 15 GM TP ONE (23:39)
--- NOTE | 2017-01-24 23:41 | ER Document Report ---
ED GI/ - General Chief Complaint: Penile Problem Stated Complaint: POSSIBLE GENITAL SWELLING Time Seen by Provider: 01/24/17 22:56 Notes: Patient is an 87-year-old male, past medical history neurofibromatosis, presents from [facility] after they noticed swelling of his penis. He is urinating normally. Patient has dementia and unable to provide any additional history. He says that he has not having any pain of his penis. TRAVEL OUTSIDE OF THE [place] IN LAST 30 DAYS: No - Related Data Allergies/Adverse Reactions: No Known Allergies Allergy (Verified 05/13/16 05:44) Past Medical History - General Information source: Transfer Record - Social History Smoking Status: Unknown if Ever Smoked Chew tobacco use (# tins/day): No Frequency of alcohol use: None Drug Abuse: None Family History: Reviewed & Not Pertinent - Past Medical History Cardiac Medical History: Reports: Hx Atrial Fibrillation, Hx Heart Attack, Hx Hypercholesterolemia Denies: Hx Hypertension Pulmonary Medical History: Denies: Hx Asthma, Hx Bronchitis, Hx COPD, Hx Pneumonia Neurological Medical History: Denies: Hx Seizures Endocrine Medical History: Reports: Hx Diabetes Mellitus Type 2 GI Medical History: Reports: Hx Gastroesophageal Reflux Disease Musculoskeltal Medical History: Denies Hx Arthritis Psychiatric Medical History: Reports: Hx Dementia, Hx Depression Past Surgical History: Reports: Hx Appendectomy, Hx Tonsillectomy - Immunizations Hx Diphtheria, Pertussis, Tetanus Vaccination: No - given in ER today Hx Pneumococcal Vaccination: 05/10/16 Review of Systems - Review of Systems -: Yes ROS unobtainable due to patient's medical condition - dementia Physical Exam - Vital signs Vitals: Pulse Resp BP Pulse Ox 69 18 114/66 95 01/24/17 21:46 01/24/17 21:46 01/24/17 21:46 01/24/17 21:46 - Notes Notes: PHYSICAL EXAMINATION: GENERAL: Well-appearing, well-nourished and in no acute distress. HEAD: Atraumatic, normocephalic. EYES: Pupils equal round and reactive to light, extraocular movements intact, sclera anicteric, conjunctiva are normal. ENT: nares patent, oropharynx clear without exudates. Moist mucous membranes. NECK: Normal range of motion, supple without lymphadenopathy LUNGS: Breath sounds clear to auscultation bilaterally and equal. No wheezes rales or rhonchi. HEART: Regular rate and rhythm without murmurs ABDOMEN: Soft, nontender, normoactive bowel sounds. No guarding, no rebound. No masses appreciated. : swelling and yeast around glans, non-tender testicles, urethra patent EXTREMITIES: Normal range of motion, no pitting or edema. No cyanosis. NEUROLOGICAL: AAOx2. Moving all 4 extremities. PSYCH: Normal mood, normal affect. SKIN: Neurofibromatosis. Course - Re-evaluation Re-evalutation: Patient urinating well on the emergency room. Will treat his yeast with nystatin and have him follow-up with his primary care physician. - Vital Signs Vital signs: Temp Pulse Resp BP Pulse Ox 97.3 F 69 18 114/66 95 01/24/17 21:50 01/24/17 21:46 01/24/17 21:46 01/24/17 21:46 01/24/17 21:46 Discharge - Discharge Clinical Impression: Inflammation of penis Condition: Stable Disposition: [facility] Additional Instructions: Apply nystatin cream to the tip of the penis 3 times a day. Follow-up with your primary care physician. Prescriptions: Nystatin 15 gm TP TID 14 Days
[2017-01-25 02:53] VITALS: BP 129/81
== END 2017-01-25 02:51 ==
LOC: ER 21:36
DX: N48.29 Other inflammatory disorders of penis (principal); R19.00 Intra-abdominal and pelvic swelling, mass and lump, unspecified site; F03.90 Unspecified dementia, unspecified severity, without behavioral disturbance, psychotic disturbance, mood disturbance, and anxiety
CPT/HCPCS: 99284; J3490

== ENCOUNTER → 2017-03-05 | Outpatient (CLI) | payer MEDICARE, BC ==
--- NOTE | 2017-03-05 14:40 | RADIOLOGY REPORT (SQ) ---
EXAM DESCRIPTION: CT CHEST WITHOUT COMPLETED DATE/TIME: 03/05/2017 2:15 pm REASON FOR STUDY: COPD J18.9 PNEUMONIA, UNSPECIFIED ORGANISM R63.4 ABNORMAL WEIGHT LOSS COMPARISON: 10/07/2016 TECHNIQUE: CT scan performed of the chest without intravenous contrast. Images reviewed with lung, soft tissue and bone windows. Reconstructed coronal and sagittal MPR images reviewed. All images st ored on PACS. All CT scanners at this facility use dose modulation, iterative reconstruction, and/or weight based d osing when appropriate to reduce radiation dose to as low as reasonably achievable (ALARA). [facility]: Dose Right [facility]: CareDose [facility]: Dose Right [facility]: Teradose 4D [facility]: [employer] RADIATION DOSE: mGy. LIMITATIONS: No technical limitations. FINDINGS: LUNGS AND PLEURA: Centrilobular and paraseptal emphysematous changes in the upper lobes. Marked improved aeration with minimal residual subsegmental ground-glass attenuation in the left uppe r lobe. No effusions. HILAR AND MEDIASTINAL STRUCTURES: No identified masses or abnormal nodes. No obvious aneurysm. HEART AND VASCULAR STRUCTURES: No aneurysm. No pericardial effusion. UPPER ABDOMEN: See separate report of the CT of the abdomen. THYROID AND OTHER SOFT TISSUES: Multiple anterior subcutaneous skin nodules. BONES: No acute findings. HARDWARE: None in the chest. OTHER: No other significant findings. IMPRESSION: COPD. No acute findings in the chest. TECHNICAL DOCUMENTATION: JOB ID: [id number] Quality ID # [id number]: Final reports with documentation of one or more dose reduction techniques (e.g., Au tomated exposure control, adjustment of the mA and/or kV according to patient size, use of iterative reconstruction technique) 2010 [employer]- All Rights Reserved
--- NOTE | 2017-03-05 15:24 | RADIOLOGY REPORT (SQ) ---
EXAM DESCRIPTION: CT ABD/PELVIS NO ORAL OR IV COMPLETED DATE/TIME: 03/05/2017 2:15 pm REASON FOR STUDY: ABN WEIGHT LOSS J18.9 PNEUMONIA, UNSPECIFIED ORGANISM R63.4 ABNORMAL WEIGHT LOSS COMPARISON: None. TECHNIQUE: CT scan of the abdomen and pelvis performed without intravenous or oral contrast. Images reviewed with lung, soft tissue, and bone windows. Reconstructed coronal and sagittal MPR images revi ewed. All images stored on PACS. All CT scanners at this facility use dose modulation, iterative reconstruction, and/or weight based d osing when appropriate to reduce radiation dose to as low as reasonably achievable (ALARA). [facility]: Dose Right [facility]: CareDose [facility]: Dose Right [facility]: Teradose 4D [facility]: [employer] RADIATION DOSE: Up-to-date CT equipment and radiation dose reduction techniques were employed. CTDIv ol: 4.4 - 4.5 mGy. DLP: 400 mGy-cm.mGy. LIMITATIONS: None. FINDINGS: LOWER CHEST: No significant findings. No nodules or infiltrates. NON-CONTRASTED LIVER, SPLEEN, ADRENALS: Evaluation limited by lack of IV contrast. No identified sign ificant masses. PANCREAS: No masses. No peripancreatic inflammatory changes. GALLBLADDER: Gallstones. No inflammatory changes to suggest cholecystitis. RIGHT KIDNEY AND URETER: No suspicious masses. Assessment limited by lack of IV contrast. No signif icant calcifications. No hydronephrosis or hydroureter. LEFT KIDNEY AND URETER: No suspicious masses. Assessment limited by lack of IV contrast. No signifi cant calcifications. No hydronephrosis or hydroureter. AORTA AND RETROPERITONEUM: 3.5 cm infrarenal aortic aneurysm. BOWEL AND PERITONEAL CAVITY: No obvious masses or inflammatory changes. No free fluid. APPENDIX: Normal. PELVIS, BLADDER, AND ABDOMINAL WALL:Symmetric enlarged prostate. BONES: No significant findings. OTHER: No other significant finding. IMPRESSION: 1. No acute findings. 2. Cholelithiasis. 3. 3.5 cm aortic aneurysm. TECHNICAL DOCUMENTATION: JOB ID: [id number] Quality ID # [id number]: Final reports with documentation of one or more dose reduction techniques (e.g., Au tomated exposure control, adjustment of the mA and/or kV according to patient size, use of iterative reconstruction technique) 2010 [employer]- All Rights Reserved
== END ==
LOC: RAD 13:31
PROVIDERS: ATTEND Family Medicine
DX: J18.9 Pneumonia, unspecified organism (principal); R63.4 Abnormal weight loss
CPT/HCPCS: 71250; 74176